=== PATIENT | male | born 1965 | race Caucasian/White ===

== ENCOUNTER → 2017-11-28 | Outpatient (CLI) | payer OTHER ==
[~2017-11-28] MED LIST: ASCO100T4 PO; ASPCH81 PO; FLUD0.1T10 PO; LEVO100T7 PO; LPR25 PO; MAGN1TAB19 PO; MULT-506 PO; MYCO500T4 PO; MYCO500T5 PO; PRLSR20 PO; TACR5CAP PO
== END | disposition home or self-care (01) ==
LOC: C.PATHSPEC 17:24
PROVIDERS: ATTEND Plastic Surgery
DX: L57.0 Actinic keratosis (principal)

== ENCOUNTER 2024-10-06 10:37 | Inpatient (IN) ==
[2024-10-06] MEDS: ACETAMINOPHEN 500 MG TAB PO STA (11:12)
[2024-10-06 11:48] LABS: Albumin Level 3.5 gm/dl (3.4-5.0); BUN Creatinine Ratio 18.3 (10-20); Bilirubin,Total 0.4 mg/dl (0.2-1.0); Calcium 8.2 mg/dl (8.6-10.3); Creatinine Clr Calc Pharmacy 15.6 ml/min; Globulin 3.6 gm/dl (2.5-4.0); Potassium 4.6 mmol/L (3.5-5.1); Total Protein 7.1 gm/dl (6.0-8.3)
[2024-10-06 11:55] LABS: Basophils # (auto) 0.01 K/uL (0.00-0.20); Basophils % (auto) 0.2 %; Hematocrit (blood only) 28.8 % (42.0-52.0); Hemoglobin 9.3 g/dl (14.0-18.0); Immature Granulocytes # (auto) 0.02 K/uL (0.01-0.20); Immature Granulocytes % (auto) 0.5 %; Lymphocytes # (auto) 0.37 K/uL (1.20-3.40); Mean Corpuscular Hgb Conc 32.3 g/dL (32.0-36.0); Mean Corpuscular Volume 86.7 fL (80.0-100.0); Mean Platelet Volume 12.3 fL (9.4-12.4); Monocytes # (auto) 0.33 K/uL (0.11-0.59); Neutrophils # (auto) 3.39 K/uL (1.40-6.50); Neutrophils % (auto) 82.3 %; Platelet Count 75 K/uL (130-400); Platelet Estimate Decreased (Normal); RDW Coefficient of Variation 13.6 % (11.5-14.5); Red Blood Count 3.32 M/uL (4.70-6.10); White Blood Count 4.12 K/ul (4.8-10.8)
--- NOTE | 2024-10-06 12:08 | Emergency Department Note ---
Impression & Plan Acute kidney injury, Status post liver transplant, Acute dehydration, Pancytopenia, COVID-19 ED Provider Note NAME: MOISES DUNNE AGE: 59 SEX: M : 1965 ARRIVES VIA: Walk-In INFORMANT: Patient, ED PROVIDER(S): Blaise Means MD CHIEF COMPLAINT: Nausea vomiting diarrhea MEDICAL DECISION MAKING: Patient presents with nausea vomiting diarrhea as well as temperature here in the department. Patient already did receive Tylenol in triage. IV was established and blood work was obtained along with blood and urine cultures procalcitonin and bio fire. The patient was treated with broad-spectrum antibiotics empirically the patient's immunosuppressive therapy and history of liver transplant. Patient was noted to be hypotensive and did inform the nurse to ensure to pressure bag in the first liter and if he did not have responsive to fluid administration to consider a second line to ensure more prompt administration of his IV fluids. Patient has a white count of 4.1 with a hemoglobin of 9.3. Platelet count is 75. Patient's initial blood work did show hyponatremia with sodium 123 creatinine of 5.1. The patient states that he did urinate some this morning. Patient is COVID-19 positive. Patient was ordered broad-spectrum antibiotics in light of the patient's borderline fever and immunosuppressive therapy. The patient was treated vancomycin and Zosyn. Patient's lactate of 0.8 Pro-Godfrey of 5.96. Patient was fluid responsive after his IV fluids. And received he received his 30 cc/kg bolus. Discussion w/ other healthcare providers: None Prior /Outside records reviewed: None Differential diagnosis: Viral syndrome, otitis, pharyngitis, pneumonia, influenza, meningitis, urinary tract infection, sepsis, bacteremia, as well as other pathologies. Diagnostics, as interpreted by me: ECG: None Cardiac monitoring: An order was placed for continuous cardiac monitoring. The monitor shows a rate of 105 with tachycardic and regular rhythm. Patient was placed on pulse oximetry Medical decision rules: None Imaging studies: I informally interpreted the patient's chest x-ray does not show obvious pneumonia or pneumothorax elevation of the right hemidiaphragm noted.with formal report to follow. HPI: Patient presents due to concern for nausea vomiting and diarrhea. The patient states that his symptoms began several days ago. No known sick contacts or any recent travel build believes that he developed the flu. Patient believes that he is dehydrated and did feel feverish this morning. Patient did take some Tylenol yesterday and did receive some in triage. Patient denies any cough or congestion no sore throat or ear pain. Patient states that he does follow with a Dr. Hill transplant specialist at [facility]. Patient states likely does follow with Pam Andrews with [facility]. Patient denies any abdominal pain. The patient is on CellCept and Prograf. 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 Patient denies any urinary symptoms or abdominal pain. Patient states that he is had no vomiting or diarrhea today. PAST MEDICAL HISTORY: See Below PAST SURGICAL HISTORY: See Below SOCIAL HISTORY: See Below HOME MEDICATIONS: See Below ALLERGIES: See Below VITALS: See Below PHYSICAL EXAMINATION: GENERAL: NAD, non-toxic. Wearing glasses and a mask. EYE EXAM: Normal conjunctiva. PERRL, no anisocoria and EOM's grossly intact w/o pain. OROPHARYNX: Moist mucus membranes, grossly normal dentition. NECK: Trachea midline, no stridor. Supple, no nuchal rigidity, no adenopathy, non-tender. No signs of meningismus. FROM of the neck with good chin to chest and neck extension. LUNGS: Clear to auscultation. Normal chest wall mechanics. HEART: Tachycardic and regular, no MRG. ABDOMEN: Abdomen soft, well-healed incisional scars noted over the abdomen, no masses, no rebound or guarding. BACK: No CVA TTP. SKIN: No rashes and no bruising. UPPER EXTREMITIES: Upper extremities are grossly normal. LOWER EXTREMITIES: Grossly normal, no edema. NEURO EXAM: A&O x3, cranial nerves II-XII grossly intact, normal speech, moves all 4 extremities. Past Med/Surg History Problem List (Updated 10/06/24 @ 19:20 by Blaise Means MD) COVID-19 (Acute) Pancytopenia (Acute) Acute dehydration (Acute) SARS-CoV-2 positive Acute hyponatremia Acute worsening of stage 3 chronic kidney disease Erectile dysfunction Prostate cancer screening Encounter for pre-operative examination Esophageal varices Ureteral calculus Hydronephrosis Hyperkalemia (02/05/14) Acute kidney injury (Acute 02/05/14) Status post cholecystectomy Ureteral calculus History of hepatic failure secondary to sclerosing cholangitis Kidney stone Status post colectomy "for ulcerative colitis" Status post liver transplant (Acute) "first transplant 1997 for sclerosing cholangitis second transplant Jul 2013 for recurrent hepatic failure third transplant Aug 2013 (donor for 2nd transplant had metastatic cancer)" History of ulcerative colitis Hypothyroidism Medical History (Updated 10/06/24 @ 19:20 by Blaise Means MD) Obesity CKD (chronic kidney disease) stage III Liver transplant recipient 1997, 2012 Pancreatitis hx ~15 years ago/no issues since liver transplant Esophageal varices hx/resolved since liver transplant GERD (gastroesophageal reflux disease) Hypertension Surgical History (Updated 10/06/24 @ 19:20 by Blaise Means MD) History of colon surgery J-Pouch surgery History of lithotripsy History of cholecystectomy with liver surgery History of colonoscopy History of esophagogastroduodenoscopy (EGD) History of colostomy reversal History of colostomy Family History Father Heart disease Cancer Other No family history of adverse response to anesthesia Social History Smoking Status: Never smoker Second Hand Exposure: No; Do You Dip or Chew Tobacco: No; Hx Alcohol Use: Yes Hx Substance Use: No Preferred Language: Uzbek Communication Ability: Effective Visual Impairment: No Limitations Hearing Ability: Normal Toolsmith Required: No Beliefs That Will Affect Care: None marital status: Current Living Situation: Spouse current occupational status: employed 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 Feels Safe at Home: Yes Diet: regular Assistive Devices: Glasses Allergies Allergies Allergy/AdvReac Type Severity Reaction Status Date / Time denosumab [From Prolia] Allergy Severe liver Verified 09/25/23 08:16 failure Sulfa (Sulfonamide Allergy Intermediate Rash Verified 09/25/23 08:16 Antibiotics) Home Meds Home Medications Medication Instructions Recorded Confirmed aspirin 81 mg tablet,delayed 81 mg PO DAILY 06/03/20 10/06/24 release ferrous sulfate 325 mg (65 mg 325 mg PO DAILY 06/03/20 10/06/24 iron) tablet,delayed release metoprolol tartrate 25 mg tablet 25 mg PO BID 06/03/20 10/06/24 mycophenolate mofetil 500 mg tablet 1,000 mg PO QAM 06/03/20 10/06/24 mycophenolate mofetil 500 mg 500 mg PO HS 06/03/20 10/06/24 tablet (CellCept) omeprazole 20 mg capsule,delayed 20 mg PO DAILY 06/03/20 10/06/24 release tacrolimus 1 mg capsule, 1 mg PO Q12H 06/03/20 10/06/24 immediate-release levothyroxine 150 mcg tablet 175 mcg PO QAM 07/23/22 10/06/24 lisinopril 5 mg tablet 5 mg PO DAILY 09/25/23 10/06/24 Results & Data (ED) Vital Signs Vital Signs - 24 hr 10/06/24 10:48 10/06/24 12:17 10/06/24 12:25 Temperature 37.7 C H 37.2 C Temperature Source Temporal Artery Scan Oral Pulse Rate 115 H 109 H Pulse Rate [Apical] Pulse Rhythm Regular Pulse Rhythm [Apical] Pulse Strength Normal Pulse Strength [Apical] Respiratory Rate 22 Respiratory Effort / Characteristics Non-Labored Spontaneous Respiratory Depth Normal Respiratory Pattern Regular Blood Pressure 126/69 Blood Pressure [Left Arm] Blood Pressure Mean 88 Blood Pressure Mean [Left Arm] Blood Pressure Position Sitting Blood Pressure Position [Left Arm] Pulse Oximetry 98 Oxygen Delivery Method Room Air Sepsis Recent Fever Within 48 Hours Yes Sepsis New/Unexplained Change in Mental Status No Sepsis Action Taken by Nursing No Action Required 10/06/24 13:38 Temperature Temperature Source Pulse Rate Pulse Rate [Apical] 103 H Pulse Rhythm Pulse Rhythm [Apical] Regular Pulse Strength Pulse Strength [Apical] Normal Respiratory Rate 24 Respiratory Effort / Characteristics Non-Labored Spontaneous Respiratory Depth Normal Respiratory Pattern Regular Blood Pressure Blood Pressure [Left Arm] 111/67 Blood Pressure Mean Blood Pressure Mean [Left Arm] 81 Blood Pressure Position Blood Pressure Position [Left Arm] Semi-fowlers Pulse Oximetry 100 Oxygen Delivery Method Room Air Sepsis Recent Fever Within 48 Hours Sepsis New/Unexplained Change in Mental Status Sepsis Action Taken by [facility] Medications Current Medication List: was personally reviewed by me Laboratory Data Attestation: I reviewed the patient's lab results. 10/06/24 11:08 10/06/24 14:53 Lab Results 10/06/24 10/06/24 Range/Units 11:08 12:35 WBC 4.12 L (4.8-10.8) K/ul RBC 3.32 L (4.70-6.10) M/uL Hgb 9.3 L (14.0-18.0) g/dl Hct 28.8 L (42.0-52.0) % MCV 86.7 (80.0-100.0) fL MCH 28.0 (25.0-34.0) pg MCHC 32.3 (32.0-36.0) g/dL RDW Std Deviation 43.0 (36.4-46.3) fL RDW Coeff of Meka 13.6 (11.5-14.5) % Plt Count 75 L (130-400) K/uL MPV 12.3 (9.4-12.4) fL Immature Gran % (Auto) 0.5 % Neut % (Auto) 82.3 % Lymph % (Auto) 9.0 % Sabine % (Auto) 8.0 % Eos % (Auto) 0.0 % Baso % (Auto) 0.2 % Neut # (Auto) 3.39 (1.40-6.50) K/uL Lymph # (Auto) 0.37 L (1.20-3.40) K/uL Sabine # (Auto) 0.33 (0.11-0.59) K/uL Eos # (Auto) 0.00 (0.00-0.50) K/uL Baso # (Auto) 0.01 (0.00-0.20) K/uL Immature Gran # (Auto) 0.02 (0.01-0.20) K/uL Platelet Estimate Decreased L (Normal) Sodium 123 L (136-145) mmol/L Potassium 4.6 (3.5-5.1) mmol/L Chloride 100 (98-107) mmol/L Carbon Dioxide 12 L (21-32) mmol/L Anion Gap 11 (3-11) BUN 94 H (6-23) mg/dl Creatinine 5.14 H* (0.6-1.4) mg/dl Est Cr Clr Drug Dosing 15.6 ml/min eGFR 12.01 BUN/Creatinine Ratio 18.3 (10-20) Glucose 145 H (70-99(Fasting)) mg/dl Lactate 0.8 (0.4-2.0) mmol/L Calcium 8.2 L (8.6-10.3) mg/dl Total Bilirubin 0.4 (0.2-1.0) mg/dl AST 34 (13-39) U/L ALT 31 (7-52) U/L Alkaline Phosphatase 240 H (34-104) U/L Total Protein 7.1 (6.0-8.3) gm/dl Albumin 3.5 (3.4-5.0) gm/dl Globulin 3.6 (2.5-4.0) gm/dl Albumin/Globulin Ratio 1.0 (0.9-2) Lipase 77 (11-82) U/L Procalcitonin 5.96 H (0-0.5) ng/ml Adenovirus (PCR) Not Detected (NotDetected) B. pertussis DNA (PCR) Not Detected (NotDetected) B.parapertussis DNA PCR Not Detected (NotDetected) Lyme Disease Screen Negative (Negative) C. pneumoniae DNA (PCR) Not Detected (NotDetected) Coronavirus OC43 (PCR) Not Detected (NotDetected) Coronavirus HKU1 (PCR) Not Detected (NotDetected) Coronavirus 229E (PCR) Not Detected (NotDetected) SARS-CoV-2 (PCR) DETECTED A (NotDetected) Coronavirus NL63 (PCR) Not Detected (NotDetected) Human Metapneumovir PCR Not Detected (NotDetected) Influenza Type A (PCR) Not Detected (NotDetected) Influenza Type B (PCR) Not Detected (NotDetected) M. pneumoniae (PCR) Not Detected (NotDetected) Parainfluenza 1 (PCR) Not Detected (NotDetected) Parainfluenza 2 (PCR) Not Detected (NotDetected) Parainfluenza 3 (PCR) Not Detected (NotDetected) Parainfluenza 4 (PCR) Not Detected (NotDetected) RSV (PCR) Not Detected (NotDetected) Entero/Rhino (PCR) Not Detected (NotDetected) Administered Medications Acetaminophen (Acetaminophen 325 Mg Tab) 650 mg PO Q4H PRN PRN Reason: Pain or Fever Stop: 11/05/24 16:19 Last Admin: 10/06/24 17:26 Dose: 650 mg Documented By: LIZBETH Doxycycline Hyclate 100 mg/ (Dextrose) 100 mls @ 50 mls/hr IV Q12H JOBY Stop: 10/20/24 16:59 Last Admin: 10/06/24 17:20 Dose: 50 mls/hr Documented By: LIZBETH Sodium Chloride (Nss) 1,000 mls @ 110 mls/hr IV .Q9H6M [facility] Stop: 10/07/24 16:19 Last Admin: 10/06/24 17:20 Dose: 110 mls/hr Documented By: LIZBETH Discontinued Medications Acetaminophen (Acetaminophen 500 Mg Tab) 1,000 mg PO NOW STA Stop: 10/06/24 11:10 Last Admin: 10/06/24 11:12 Dose: 1,000 mg Documented By: JUANA Sodium Chloride (Nss) 1,000 mls @ 999 mls/hr IV .Q1H1M JOBY Stop: 10/06/24 14:30 Last Infusion: 10/06/24 15:09 Dose: Infused Documented By: Admin: 10/06/24 13:10 Dose: 999 mls/hr Documented By: Infusion: 10/06/24 13:10 Dose: Infused Documented By: Admin: 10/06/24 12:40 Dose: 999 mls/hr Documented By: Sodium Chloride (Nss) 500 mls @ 999 mls/hr IV .Q31M ONE Stop: 10/06/24 12:55 Last Infusion: 10/06/24 13:44 Dose: Infused Documented By: Admin: 10/06/24 12:40 Dose: 999 mls/hr Documented By: Vancomycin HCl 2,250 mg/ (Dextrose) 545 mls @ 200 mls/hr IV NOW ONE Stop: 10/06/24 15:38 Last Infusion: 10/06/24 16:40 Dose: Infused Documented By: Admin: 10/06/24 13:56 Dose: 200 mls/hr Documented By: Piperacillin Sod/Tazobactam Sod (Zosyn) 4.5 gm in 100 mls @ 200 mls/hr IV NOW ONE; Protocol Stop: 10/06/24 13:24 Last Infusion: 10/06/24 13:57 Dose: Infused Documented By: Admin: 10/06/24 13:10 Dose: 200 mls/hr Documented By: FAIZAN Ondansetron HCl (Ondansetron Inj 2 Mg/Ml 2 Ml Vial) 4 mg IV NOW STA Stop: 10/06/24 12:26 Last Admin: 10/06/24 12:47 Dose: 4 mg Documented By: MSG Imaging Data Radiologist's Impression: Chest X-Ray 10/06/24 12:57 XR chest 1V portable HISTORY: 59 years-old Male admit acute shortness of breath COMPARISON: 06/07/2020 TECHNIQUE: AP view of the chest FINDINGS: Cardiac silhouette is enlarged. The lungs appear clear. Mild chronic interstitial coarsening. No pneumothorax or pleural effusion. There is unchanged right hemidiaphragmatic elevation. The bones appear grossly intact. IMPRESSION: No acute process. ACT 112: Negative or not required by law. The above report was generated using voice recognition software. It may contain grammatical, syntax or spelling errors. Electronically signed by: Jared Mcdaniel M.D. 10/06/2024 1:31 PM Discharge Plan Visit Data Chief Complaint: Dehydration Stated Complaint: DEHYDRATION, LIGHTHEADED/HEADACHE, FATIGUE ED Provider: Blaise Means Discharge Problem: Acute kidney injury, Status post liver transplant, Acute dehydration, Pancytopenia, COVID-19 Patient Disposition: Admitted As Inpatient Discharge Instructions Interventions: ED Discharge Assessment Last Done: 10/06/24 16:20 Discharge Problem:
[2024-10-06 12:21] LABS: Adenovirus PCR Not Detected (NotDetected); Bordetella parapertussis PCR Not Detected (NotDetected); Bordetella pertussis PCR Not Detected (NotDetected); Chlamydia pneumoniae PCR Not Detected (NotDetected); Coronavirus 229E PCR Not Detected (NotDetected); Coronavirus CoV-2 (COVID19)PCR DETECTED (NotDetected); Coronavirus HKU1 PCR Not Detected (NotDetected); Coronavirus NL63 PCR Not Detected (NotDetected); Coronavirus OC43PCR Not Detected (NotDetected); Human Metapneumovirus PCR Not Detected (NotDetected); Influenza A PCR Not Detected (NotDetected); Influenza B PCR Not Detected (NotDetected); Mycoplasma pneumoniae PCR Not Detected (NotDetected); Parainfluenza Virus 1 PCR Not Detected (NotDetected); Parainfluenza Virus 2 PCR Not Detected (NotDetected); Parainfluenza Virus 3 PCR Not Detected (NotDetected); Parainfluenza Virus 4 PCR Not Detected (NotDetected); Respiratory Syncytial VirusPCR Not Detected (NotDetected); Rhinovirus/Enterovirus PCR Not Detected (NotDetected)
[2024-10-06] MEDS: SODIUM CHLORIDE 0.9% 1,000 ML IV SCH ×2 (12:40→17:20)
[2024-10-06] MEDS: SODIUM CHLORIDE 0.9% 500 ML IV ONE (12:40)
[2024-10-06] MEDS: ONDANSETRON INJ 2 MG/ML 2 ML VIAL IV STA (12:47)
[2024-10-06] MEDS ORDERED: VANCOMYCIN CONSULT ACTIVE PRN (12:55)
[2024-10-06] MEDS: PIPERACILLIN/TAZOBACTAM 4.5 GM/100 ML BAG IV ONE (13:10)
--- NOTE | 2024-10-06 13:32 | XRay Report ---
XR chest 1V portable HISTORY: 59 years-old Male admit acute shortness of breath COMPARISON: 06/07/2020 TECHNIQUE: AP view of the chest FINDINGS: Cardiac silhouette is enlarged. The lungs appear clear. Mild chronic interstitial coarsening. No pneu mothorax or pleural effusion. There is unchanged right hemidiaphragmatic elevation. The bones appear grossly intact. IMPRESSION: No acute process. ACT 112: Negative or not required by law. The above report was generated using voice recognition software. It may contain grammatical, syntax o r spelling errors. Electronically signed by: Jared Mcdaniel M.D. 10/06/2024 1:31 PM
[2024-10-06] MEDS: VANCOMYCIN HCL 2,250 MG in DEXTROSE 5% 500 ML IV ONE (13:56)
--- NOTE | 2024-10-06 14:05 | History & Physical Report ---
Date of Service October 06, 2024 Assessment & Plan (1) Acute worsening of stage 3 chronic kidney disease: (2) Acute hyponatremia: (3) SARS-CoV-2 positive: (4) Status post liver transplant: Plan This is a 59-year-old male who has significant past medical history of primary s clerosing cholangitis status post liver transplant in 1997, retransplant in 2013 secondary to chronic failure as well as Prolia injection and repeat transplant 2 weeks after that secondary to organ donor found to have squamous cell carcinoma of lung, chronic ulcerative colitis, HTN, Sharif's, CKD stage III, anemia of chronic disease and hypothyroidism who presents to ED secondary to flulike sympt oms x 4 days. Acute on Chronic CKD -3 Acute Hyponatremia - suspect hypovolemic hypotonic admit to PCU received 2L of IVF in ED continue maintenance fluids at 110cc/hr x24 hr - reassess need to re order in a.m. bmp q4 hours consult nephrology Dr. Leigh baseline cr 2.2-2.4 - follows Dr. Alejo [facility] - recently seen in August had imaging done which revealed a large 1cm Obs kidney stone on L, had consultation with surgical service and felt L kidney functioning poorly; therefore did not feel removing stone would provide benefit Consider renal US or CT scan if minimal improvement of renal function despite fluids hold and avoid nephrotoxic agents Acute thrombocytopenia suspect in setting of acute illness baseline plts in 200s obtain tick borne serologies as well monitor Sars COV 2 pt asymptomatic from respiratory standpoint does not meet criteria for guided therapies monitor, supportive care clear liquid diet, advance as tolerated received IV Vanco/zosyn in ED - do not see need to continue IV antibiotics at this time Hx of PSC s/p liver transplant in 1997 required repeat transplantation in 2012 2/2 chronic failure and prolia inj required repeat transplantation 2 weeks later in 2013 due to organ donor found to have lung SCC has been stable since Follows [facility] [place] Transplant Dr Singh on tacrolimus and prograf, tacro level pending spoke to food safety coordinator Carol at [place] [phone], recommendation to hold tacro level given ARELIS and check daily Tacro levels, goal is 3-6, ok to continue prograf HTN: chronic, stable - bp on lower side, hold lisinopril, continue metoprolol for now with hold parameters Anemia of renal disease: baseline hgb 9-10, continue iron supplement, follows Nephro in [place] Secondary hypoparathyroidism: previously on Ca + Vit D, currently off Chronic Conditions: Hypothyroidism, barretts, Chronic U.C -> continue home meds DVT ppx: SCDS for now given new thrombocytopenia, if stable in a.m. recommend chemical ppx until more ambulatory FULL CODE PCP: MD Darryl Dispo: admit to PCU, likely discharge to home when medically able Pt was seen and examined in collaboration with Dr. Spencer, please see addendum I spent a total of 90 minutes reviewing notes, outpatient records, labs, medication, coordinating, documenting and providing care for this patient excluding time spent in the performance of separately billed services. History of Present Illness Chief Complaint: Flu like sx x 4 days. Primary Care Provider: Vicky Andrews MD This is a 59-year-old male who has significant past medical history of primary sclerosing cholangitis status post liver transplant in 1997, retransplant in 2012 secondary to chronic failure as well as Prolia injection and repeat transplant 2 weeks after that secondary to organ donor found to have squamous cell carcinoma of lung, chronic ulcerative colitis, HTN, Sharif's, CKD stage III, anemia of chronic disease and hypothyroidism who presents to ED secondary to flulike symptoms x 4 days. is at bedside who also helps elicit history. Patient's outpatient medical records were reviewed. He states his symptoms started on Saturday when he began to feel generally unwell., "I felt like I had the flu." He tried to go to the [employer] on Saturday and was tailgating for 2 hours when he returned home and wrapped himself up in blankets. He felt very feverish and chilled. He did not take his temperature but he is positive he had a fever. He further complained of headache, poor appetite, lack of energy and nausea. He did have 2 episodes of vomiting last evening after he attempted to eat birthday cake for his son-in-law. He has chronic loose stool at baseline and denies any worsening of this. He is producing urine. He denies any respiratory symptoms including sinus congestion, cough, postnasal drip, chest pain, shortness of breath. He further denies any urinary symptoms including dysuria, increased urgency or frequency with urination. He did not take any of his medications this morning. He last took his medications last evening. Patient is established with [facility] nephrology in regards to his CKD stage III. He reports that he had a visit less than 1 month ago. He had imaging of his abdomen which revealed a large 1 cm kidney stone obstructing his left kidney. He reports at this point in time they wish to not proceed surgically with this due to a poorly functioning left kidney at baseline. He also reports that he follows with Dr. Arizmendi of [facility] urology. In ED patient remained hemodynamically stable. He did have an episode of hypotension which resolved with an IV fluid bolus. His lab work revealed a chronic anemia with a stable hemoglobin of 9.3. He does have a thrombocytopenia with a platelet level of 75. He has an acute hyponatremia with a sodium of 123 and ARELIS with a BUN of 94 and creatinine of 5.14. His respiratory bio fire tested positive for SARS-CoV-2. In ED he received 2 L of IV fluid as well as IV vancomycin and Zosyn due to patient's immunosuppressed status. Allergies Allergy/AdvReac Type Severity Reaction Status Date / Time denosumab [From Prolia] Allergy Severe liver Verified 09/25/23 08:16 failure Sulfa (Sulfonamide Allergy Intermediate Rash Verified 09/25/23 08:16 Antibiotics) Home Medications Medication Instructions Recorded Confirmed Type aspirin 81 mg tablet,delayed 81 mg PO DAILY 06/03/20 10/06/24 History release ferrous sulfate 325 mg (65 mg 325 mg PO DAILY 06/03/20 10/06/24 History iron) tablet,delayed release metoprolol tartrate 25 mg tablet 25 mg PO BID 06/03/20 10/06/24 History mycophenolate mofetil 500 mg tablet 1,000 mg PO QAM 06/03/20 10/06/24 History mycophenolate mofetil 500 mg 500 mg PO HS 06/03/20 10/06/24 History tablet (CellCept) omeprazole 20 mg capsule,delayed 20 mg PO DAILY 06/03/20 10/06/24 History release tacrolimus 1 mg capsule, 1 mg PO Q12H 06/03/20 10/06/24 History immediate-release levothyroxine 150 mcg tablet 175 mcg PO QAM 07/23/22 10/06/24 History lisinopril 5 mg tablet 5 mg PO DAILY 09/25/23 10/06/24 History Past Med/Surg History Problem List (Updated 10/06/24 @ 14:21 by Edie Estevez PA-C) SARS-CoV-2 positive Acute hyponatremia Acute worsening of stage 3 chronic kidney disease Erectile dysfunction Prostate cancer screening Encounter for pre-operative examination Esophageal varices Ureteral calculus Hydronephrosis Hyperkalemia (02/05/14) Acute kidney injury (02/05/14) Status post cholecystectomy Ureteral calculus History of hepatic failure secondary to sclerosing cholangitis Kidney stone Status post colectomy "for ulcerative colitis" Status post liver transplant "first transplant 1997 for sclerosing cholangitis second transplant Jul 2013 for recurrent hepatic failure third transplant Aug 2013 (donor for 2nd transplant had metastatic cancer)" History of ulcerative colitis Hypothyroidism Medical History (Updated 10/06/24 @ 14:21 by Edie Estevez PA-C) Obesity CKD (chronic kidney disease) stage III Liver transplant recipient 1997, 2012 Pancreatitis hx ~15 years ago/no issues since liver transplant Esophageal varices hx/resolved since liver transplant GERD (gastroesophageal reflux disease) Hypertension Surgical History History of colon surgery J-Pouch surgery History of lithotripsy History of cholecystectomy with liver surgery History of colonoscopy History of esophagogastroduodenoscopy (EGD) History of colostomy reversal History of colostomy Family History Father Heart disease Cancer Other No family history of adverse response to anesthesia Social History Smoking Status: Never smoker Second Hand Exposure: No; Do You Dip or Chew Tobacco: No; Hx Alcohol Use: Yes Hx Substance Use: No Preferred Language: Faroese Communication Ability: Effective Visual Impairment: No Limitations Hearing Ability: Normal Construction Engineer Required: No Beliefs That Will Affect Care: None marital status: Current Living Situation: Spouse current occupational status: employed 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 Feels Safe at Home: Yes Diet: regular Assistive Devices: Glasses Review of Systems Review of Systems: All systems reviewed & are unremarkable except as noted in HPI & below Physical Exam Physical Exam: Constitutional: WD/WN, acutely ill, vitals as above, NAD, sitting up in bed, pleasant, conversing easily Head: Normocephalic, Atraumatic Eyes: PERRL, conjunctivae normal, anicteric sclerae ENMT: external ear and nose normal, oropharynx normal Neck: trachea midline, no thyromegaly normal visual inspection Respiratory: normal respiratory effort, lungs clear to auscultation, no wheeze, rales, rhonchi. Normal insp/exp effort, no accessory muscle use Cardiovascular: RRR, no murmur, no edema Vessels: no JVD or carotid bruit Chest: normal inspection of chest Abdomen: normal bowel sounds, soft, + evidence of multiple surgeries, nontender, no hepatosplenomegaly Musculoskeletal: no cyanosis or clubbing, extremities motor strength 5/5 Skin: no rashes, warm and dry normal turgor Neurologic: PERRL, EOMI, accommodation nl, no face palsy, no dysarthria CN's II-XI intact bilaterally and moves all extremities Psychiatric: A+Ox3, euthymic affect Lymphatic: no cervical or axillary lymphadenopathy : deferred Results & Data Results & Data Vital Signs (Past 12 Hours) Vital Signs Temp Pulse Pulse Resp BP BP Pulse Ox 10/06/24 13:38 103 H 24 111/67 100 10/06/24 12:25 109 H 10/06/24 12:17 37.2 C 10/06/24 10:48 37.7 C H 115 H 22 126/69 98 O2 Del Method 10/06/24 13:38 Room Air 10/06/24 12:25 10/06/24 12:17 10/06/24 10:48 Room Air Laboratory Results I have independently reviewed and interpreted patient's admitting labs including CBC, CMP, lipase, procal, biofire, lactic acid Diagnostic Findings Chest X-Ray 10/06/24 12:57 XR chest 1V portable HISTORY: 59 years-old Male admit acute shortness of breath COMPARISON: 06/07/2020 TECHNIQUE: AP view of the chest FINDINGS: Cardiac silhouette is enlarged. The lungs appear clear. Mild chronic interstitial coarsening. No pneumothorax or pleural effusion. There is unchanged right hemidiaphragmatic elevation. The bones appear grossly intact. IMPRESSION: No acute process. ACT 112: Negative or not required by law. The above report was generated using voice recognition software. It may contain grammatical, syntax or spelling errors. Electronically signed by: Jared Mcdaniel M.D. 10/06/2024 1:31 PM Medications Administered Medication List Sodium Chloride (Nss) 1,000 mls @ 999 mls/hr IV .Q1H1M JOBY Stop: 10/06/24 14:30 Last Admin: 10/06/24 13:10 Dose: 999 mls/hr Documented By: Infusion: 10/06/24 13:10 Dose: Infused Documented By: Admin: 10/06/24 12:40 Dose: 999 mls/hr Documented By: Vancomycin HCl 2,250 mg/ (Dextrose) 545 mls @ 200 mls/hr IV NOW ONE Stop: 10/06/24 15:38 Last Admin: 10/06/24 13:56 Dose: 200 mls/hr Documented By: Discontinued Medications Acetaminophen (Acetaminophen 500 Mg Tab) 1,000 mg PO NOW STA Stop: 10/06/24 11:10 Last Admin: 10/06/24 11:12 Dose: 1,000 mg Documented By: JUANA Sodium Chloride (Nss) 500 mls @ 999 mls/hr IV .Q31M ONE Stop: 10/06/24 12:55 Last Infusion: 10/06/24 13:44 Dose: Infused Documented By: Admin: 10/06/24 12:40 Dose: 999 mls/hr Documented By: Piperacillin Sod/Tazobactam Sod (Zosyn) 4.5 gm in 100 mls @ 200 mls/hr IV NOW ONE; Protocol Stop: 10/06/24 13:24 Last Infusion: 10/06/24 13:57 Dose: Infused Documented By: Admin: 10/06/24 13:10 Dose: 200 mls/hr Documented By: FAIZAN Ondansetron HCl (Ondansetron Inj 2 Mg/Ml 2 Ml Vial) 4 mg IV NOW STA Stop: 10/06/24 12:26 Last Admin: 10/06/24 12:47 Dose: 4 mg Documented By: ECG Additional Comments: I have independently reviewed and interpreted patient's admitting EKG which revealed: 111 sinus tachycardia COVID-19 Results Results COVID-19 Adm Lab Results: RBC 3.32 M/uL (4.70-6.10) L 10/06/24 WBC 4.12 K/ul (4.8-10.8) L 10/06/24 Hgb 9.3 g/dl (14.0-18.0) L 10/06/24 Hct 28.8 % (42.0-52.0) L 10/06/24 Plt Count 75 K/uL (130-400) L 10/06/24 Neutrophils (%) (Auto) 82.3 % 10/06/24 Lymphocytes (%) (Auto) 9.0 % 10/06/24 Monocytes # (Auto) 0.33 K/uL (0.11-0.59) 10/06/24 Eosinophils # (Auto) 0.00 K/uL (0.00-0.50) 10/06/24 Immature Granulocyte % (Auto) 0.5 % 10/06/24 Neutrophils # (Auto) 3.39 K/uL (1.40-6.50) 10/06/24 Lymphocytes # (Auto) 0.37 K/uL (1.20-3.40) L 10/06/24 Monocytes # (Auto) 0.33 K/uL (0.11-0.59) 10/06/24 Eosinophils # (Auto) 0.00 K/uL (0.00-0.50) 10/06/24 Basophils # (Auto) 0.01 K/uL (0.00-0.20) 10/06/24 Immature Granulocyte # (Auto) 0.02 K/uL (0.01-0.20) 4 Na 123 mmol/L (136-145) L 10/06/24 K 4.6 mmol/L (3.5-5.1) 10/06/24 Cl 100 mmol/L (98-107) 10/06/24 CO2 12 mmol/L (21-32) L 10/06/24 Anion Gap 11 (3-11) 10/06/24 BUN 94 mg/dl (6-23) H 10/06/24 Creatinine 5.14 mg/dl (0.6-1.4) H* 10/06/24 BUN/Creatinine Ratio 18.3 (10-20) 10/06/24 Glucose Level 145 mg/dl (70-99(Fasting)) H 10/06/24 Ca 8.2 mg/dl (8.6-10.3) L 10/06/24 Total Bilirubin 0.4 mg/dl (0.2-1.0) 10/06/24 AST/SGOT 34 U/L (13-39) 10/06/24 ALT/SGPT 31 U/L (7-52) 10/06/24 Alkaline Phosphatase 240 U/L (34-104) H 10/06/24 Total Protein 7.1 gm/dl (6.0-8.3) 10/06/24 Albumin 3.5 gm/dl (3.4-5.0) 10/06/24 Globulin 3.6 gm/dl (2.5-4.0) 10/06/24 Albumin/Globulin Ratio 1.0 (0.9-2) 10/06/24 Procalcitonin 5.96 ng/ml (0-0.5) H 10/06/24 Adenovirus (PCR) Not Detected (NotDetected) 10/06/24 B. parapertussis DNA (PCR) Not Detected (NotDetected) 09/25 01/18 B. pertussis DNA (PCR) Not Detected (NotDetected) 10/06/24 C. pneumoniae DNA (PCR) Not Detected (NotDetected) 4 Coronavirus Type OC43 (PCR) Not Detected (NotDetected) 11/17 Coronavirus Type HKU1 (PCR) Not Detected (NotDetected) 11/17 Coronavirus Type 229E (PCR) Not Detected (NotDetected) 11/17 COVID-19 PCR DETECTED (NotDetected) A 10/06/24 Coronavirus Type NL63 (PCR) Not Detected (NotDetected) 11/17 Human Metapneumovirus (PCR) Not Detected (NotDetected) 11/17 Influenza Virus Type A (PCR) Not Detected (NotDetected) Influenza Virus Type B (PCR) Not Detected (NotDetected) M. pneumoniae (PCR) Not Detected (NotDetected) 10/06/24 Parainfluenza Type 1 (PCR) Not Detected (NotDetected) 09/25 01/18 Parainfluenza Type 2 (PCR) Not Detected (NotDetected) 09/25 01/18 Parainfluenza Type 3 (PCR) Not Detected (NotDetected) 09/25 01/18 Parainfluenza Type 4 (PCR) Not Detected (NotDetected) 09/25 01/18 RSV (PCR) Not Detected (NotDetected) 10/06/24 Enterovirus/Rhinovirus (PCR) Not Detected (NotDetected) Chest X-Ray 10/06/24 Code Status & VTE Plan Code Status FULL CODE VTE Prophylaxis Plan VTE Prophylaxis will be ordered: Yes Supervising Physician Co-Signing Physician Notes 59-year-old male with PMH of primary sclerosing cholangitis status post liver transplant x 2 [1997 and 2012] , chronic ulcerative colitis, CKD stage III, anemia of chronic disease and hypothyroidism presented to the ED with 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 Patient reports feeling feverish with chills and sweats, very poor appetite, no energy, tiredness and easy fatigability, vomiting x 2 after trying to eat slice of birthday cake yesterday. He denies cough or shortness of breath. Denies other family members with similar symptoms at home. Labs and imagings reviewed. Pancytopenia noted, likely in the setting of immunosuppressive use and can be exacerbated by recent COVID infection. Sodium 123, creatinine of 5.14, procalcitonin elevated at 5.96, UA negative for UTI, respiratory pathogen panel positive for COVID. CXR with no acute process. EKG with sinus tach. Follow admitting blood culture. COVID-19 infection: Has general weakness, poor appetite, low-grade fever. Denies cough or respiratory symptoms or shortness of breath. CXR with no acute process. Continue to monitor clinically. No signs of bacterial superinfection, will not continue antibiotic for now, monitor off antibiotic. Symptomatic management for now. isolation precaution. Incentive spirometry. Hyponatremia and acute kidney injury over CKD III: Likely secondary to poor p.o. intake prior to arrival. Sodium and creatinine as above, continue with IV fluid, nephrology consult, BMP every 4 hours. History of PSC status post liver transplant x 2: Per food safety coordinator at [place], darrylay to continue Prograf and hold tacro for now given ARELIS and take daily tacro levels with a goal being 3-6. On exam: GENERAL: Alert and oriented x3. NAD, on RA. HEENT: No pallor, no icterus. Pupils equal, round and reactive to light. Oral mucosa moist. NECK: No JVD, no neck masses. HEART: S1 and S2 heard. Regular rate and rhythm. No murmur, no gallop. RESPIRATORY SYSTEM: Normal AP diameter. No accessory muscle use. No wheezing, no crackles. ABDOMEN: Soft, bowel sounds present, nontender, no distention. Healed old surgical scars - midline and hypochondriac. CENTRAL NERVOUS SYSTEM: No facial droop. Speech is clear. Obeys simple commands. Moves extremities. EXTREMITIES: No edema, no erythema seen. I have seen and examined the patient and have discussed the case with the provider above. I agree with the assessment and plan as stated. Time spent: 35 min.
[2024-10-06 14:26] LABS: Appearance Urine Turbid (Clear); Bacteria Urine Automated None Seen (None Seen); Bilirubin Urine Negative (Negative); Blood Urine Negative (Negative); Color Urine Yellow; Glucose Urine UA Negative (Negative); Granular Casts Urine Present /lpf (None Prsent); Ketones Urine Negative (Negative); Leukocyte Esterase Urine Negative (Negative); Nitrite Urine Negative (Negative); Protein Urine 2+ (Negative); RBC Urine Automated 0-2 /hpf (0-2); Specific Gravity Urine 1.013 (1.000-1.030); Urobilinogen Urine Negative (Negative); WBC Urine Automated 0-5 /hpf (0-5)
[2024-10-06 14:35] LABS: Creatinine Urine Random 184.3 mg/dl; Protein Creatinine Ratio Urine 0.7 (0-0.2); Total Protein Urine Random 131.4 mg/dl (0-11.9)
--- NOTE | 2024-10-06 15:01 | Nephrology Consultation ---
Date of Consultation October 06, 2024 Assessment & Plan (1) Acute worsening of stage 3 chronic kidney disease: Found to have ARELIS with creat of 5.1 and na 123. getting NS. Also tested for Covid. getting Iv vanco and Iv Zosyn also His last outpt labs from 08/21/2024 ---creat 2.4 k 5.4 and dropping Na of 130. Must be noted that for last 6 months Creat has been rising, K has been rising and na has been dropping. There has been Worsened left kidney status--maybe was functional before but is now non functional totally with severe Hydronephrosis Do need to check renal US and make sure there is no rt Hydronephrosis as the cause of much worsened ARELIS for now given clinical Situation and Low BP will assume he is volume depleted and continue iv fluid. Hold Lisinopril. No NSAIDS. No nephrotoxic agents. Currently written for vanco and Zosyn--this combination is quite problematic from renal standpoint and would recommend to use alternate drugs. Also given creat of 5 and rising cannot rule out the potential need of Dialysis also. Will do this discussion after overnight hydration and lab trend. (2) Acute hyponatremia: Chek urine na and urine creat and urine Osm. for now Assume Hypovolemic Hyponatremia. renal panel stat now and every 8hrs at least. Aim to raise the na by about 8 meq per day (3) SARS-CoV-2 positive: (4) Status post liver transplant: On Prograf and MMF. continue same dose. Can check Prograf level but very very slow turn around time in hospital making the test useless !!!!! Plan Case complexity high. Plan discussed with Hospitalist and in agreement. time spent 55 mins History of Present Illness Reason for Consultation: ARELIS on CKD and Hyponatremia Attending Physician: Dr Spencer History of Present Illness 59/M with CKD 3B and Worsening Kidney function as outpt for the last few months. Was seen by Nephrology at [facility] on 08/28. renal US was done and showed Worsened left Hydronephrosis. then seen by urology and [place] Surgical intervention wont help as the abnormality was too severe and irreversible state. He has history of primary sclerosing cholangitis status post liver transplant in 1997, retransplant in 2012 secondary to chronic failure and repeat transplant 2 weeks after that ( secondary to organ donor found to have squamous cell carcinoma of lung) chronic ulcerative colitis, HTN, Sharif's, CKD stage III, anemia of chronic disease and hypothyroidism who presents to ED secondary to flulike symptoms x 4 days. Found to have ARELIS with creat of 5.1 and na 123. getting NS. Also tested for Covid. Getting Iv vanco and Iv Zosyn also His last outpt labs from 08/21/2024 ---creat 2.4 k 5.4 and dropping Na of 130. Must be noted that for last 6 months Creat has been rising, K has been rising and na+ has been dropping. last few days Appetite is less for both solid and water intake. No NSAIDS and No Urinary Complaints. ROS--see HPI. 12 Systems reviewed and negative Physical Exam Physical Exam: Constitutional: Awake and alert. at bedside. Mm--moist. neck Supple. No JVD. Respiratory: lungs clear to auscultation, no wheeze, rales, rhonchi. Normal insp/exp effort Cardiovascular: RRR, no murmur, no edema Abdomen: soft, + multiple surgeries, nontender, Skin: no rashes, warm and dry normal turgor Neurologic: PERRL, EOMI, accommodation nl, no face palsy, no dysarthria CN's II-XI intact bilaterally and moves all extremities Psychiatric: A+Ox3, euthymic affect Allergies Allergy/AdvReac Type Severity Reaction Status Date / Time denosumab [From Prolia] Allergy Severe liver Verified 09/25/23 08:16 failure Sulfa (Sulfonamide Allergy Intermediate Rash Verified 09/25/23 08:16 Antibiotics) Home Medications Medication Instructions Recorded Confirmed Type aspirin 81 mg tablet,delayed 81 mg PO DAILY 06/03/20 10/06/24 History release ferrous sulfate 325 mg (65 mg 325 mg PO DAILY 06/03/20 10/06/24 History iron) tablet,delayed release metoprolol tartrate 25 mg tablet 25 mg PO BID 06/03/20 10/06/24 History mycophenolate mofetil 500 mg tablet 1,000 mg PO QAM 06/03/20 10/06/24 History mycophenolate mofetil 500 mg 500 mg PO HS 06/03/20 10/06/24 History tablet (CellCept) omeprazole 20 mg capsule,delayed 20 mg PO DAILY 06/03/20 10/06/24 History release tacrolimus 1 mg capsule, 1 mg PO Q12H 06/03/20 10/06/24 History immediate-release levothyroxine 150 mcg tablet 175 mcg PO QAM 07/23/22 10/06/24 History lisinopril 5 mg tablet 5 mg PO DAILY 09/25/23 10/06/24 History Patient History Medical History Obesity CKD (chronic kidney disease) stage III Liver transplant recipient 1997, 2012 Pancreatitis hx ~15 years ago/no issues since liver transplant Esophageal varices hx/resolved since liver transplant GERD (gastroesophageal reflux disease) Hypertension Surgical History History of colon surgery J-Pouch surgery History of lithotripsy History of cholecystectomy with liver surgery History of colonoscopy History of esophagogastroduodenoscopy (EGD) History of colostomy reversal History of colostomy Family History Father Heart disease Cancer Other No family history of adverse response to anesthesia Social History Smoking Status: Never smoker Second Hand Exposure: No; Do You Dip or Chew Tobacco: No; Hx Alcohol Use: Yes Hx Substance Use: No Preferred Language: Chadian Communication Ability: Effective Visual Impairment: No Limitations Hearing Ability: Normal Supervisor [place] Required: No Beliefs That Will Affect Care: None marital status: Current Living Situation: Spouse current occupational status: employed 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
[2024-10-06 15:28] LABS: BUN Creatinine Ratio 19.9 (10-20); Calcium 7.1 mg/dl (8.6-10.3); Creatinine Clr Calc Pharmacy 16.8 ml/min; Potassium 4.4 mmol/L (3.5-5.1)
[2024-10-06 17:02] LABS: Phosphorus 3.4 mg/dl (2.5-4.9)
[2024-10-06] MEDS: DOXYCYCLINE HYCLATE 100 MG in DEXTROSE 5% MINI-B 100 ML IV SCH (17:20)
[2024-10-06] MEDS: ACETAMINOPHEN 325 MG TAB PO PRN (17:26)
--- NOTE | 2024-10-06 17:45 | Ultrasound Report ---
EXAM: US renal/blad retro comp CLINICAL HISTORY: ARELIS, hx of hydronephrosis. Rt kidney: L=12.7cm. No hydronephrosis. 3.1x3.0x2.9cm UP cystic area. Other likely tiny cysts seen throughout. Lt kidney: L=12.5cm. Severe hydronephrosis seen, prox ureter=1.8cm. 1.1x.7x.9cm LP cystic area seen. Bladder: Unremarkable. Rt jet seen. TECHNIQUE: A renal ultrasound was performed using grayscale imaging and Doppler. COMPARISON: Comparison is made with prior imaging studies dated 09/04/2024. FINDINGS: Right Kidney: The right kidney measures 12.6 cm in its longest dimension Few renal simple renal cortical cysts, the largest is upper and measures 30 X 29 X 28 mm. No, hydronephrosis, calculi, or masses were identified. Renal parenchymal echogenicity is increased Cortical thickness: Within normal. Renal pelvis within normal. Left Kidney: The left kidney measures 12.5 cm. it shows marked hydronephrosis with upper ureteric diameter measures of 18 mm, subsequent thinning out of renal parenchyma is noted Renal parenchymal echogenicity is increased few renal cortical cysts largest measures 10X7X9 mm Urinary bladder: The urinary bladder is normally distended with normal wall thickness. No calculus or mass is noted in it. right-sided ureteral jet is seen. Left-sided ureteral jet is not seen. IMPRESSION: 1. left-sided marked hydronephrosis with thinning out of renal parenchyma and non-visualised left ureteric jet. 2. 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 3. Bilateral renal simple critical cysts. 4. No right-sided hydronephrosis. 5. No time interval changes. [facility]'s ER was called at at 4:39 PM T[facility] PACKER, 10/06/2024 and nurse Peyton was informed about the presence of important medical findings. Electronically signed by Evelyn Stephen 10-06-2024 5:44 PM
[2024-10-06] MEDS ORDERED: ONDANSETRON INJ 2 MG/ML 2 ML VIAL IV PRN (18:30)
[2024-10-06] MEDS: MYCOPHENOLATE MOFETIL 250 MG CAP PO SCH (20:23)
[2024-10-06] MEDS: METOPROLOL TARTRATE 25 MG TAB PO SCH (20:23)
[2024-10-06 20:49] LABS: BUN Creatinine Ratio 17.2 (10-20); Calcium 7.3 mg/dl (8.6-10.3); Potassium 4.2 mmol/L (3.5-5.1)
--- OUTSIDE RECORDS SUMMARY | 2024-10-06 21:12 | External Medical Summary | Continuity of Care Document ---
Author Name Unknown Organization [place] [address] [address] [place], [place] [id number] Care Team Providers Care Non Destructive Testing Scientist Name Role Phone Vicky Andrews Primary Care Physician [id number] Date(s): 09/24/24 - 09/24/[address] [place] [address] [facility] Diagnostic Radiology [address] [facility] [place] [address] Discharge Disposition: Home or Self Care Attending Physician: MD Singh Karen L Referring Physician: MD Singh Karen L Allergies, Adverse Reactions, Alerts Substance Criticality Severity Reaction Reaction Severity Status sulfa drugs 1 Unable to assess criticality Moderate rash Active Bactrim Itchy Skin rash Hives Active Prolia Shock Active 1Replaced free text allergy Immunizations Given and Recorded Vaccine Date Status Refusal Reason zoster vaccine, inactivated 1 01/03/22 Recorded SARS-CoV-2 (COVID-19) mRNA BNT-162b2 vax 2 11/03/21 Recorded SARS-CoV-2 (COVID-19) mRNA BNT-162b2 vax 3 10/25/21 Recorded SARS-CoV-2 (COVID-19) mRNA BNT-162b2 vax 4 12/22/20 Recorded SARS-CoV-2 (COVID-19) mRNA BNT-162b2 vax 5 12/05/20 Recorded tetanus toxoids-diphtheria, Td (Adult) 6 09/15/19 Recorded pneumococcal 23-valent vaccine 7 09/15/19 Recorded pneumococcal 23-valent vaccine 8 06/15/08 Recorded pneumococcal 13-valent vaccine 9 07/25/17 Recorded hepatitis B adult vaccine 10 09/19/10 Recorded hepatitis B adult vaccine 11 11/17/09 Recorded hepatitis B adult vaccine 12 10/13/09 Recorded tetanus/diphtheria/pertuss, acel (Tdap) 13 09/15/08 Recorded Not Given Vaccine Date Status Refusal Reason influenza virus vaccine, inactivated 11/11/19 Not Given Patient Refuses 1Result Comment: 2022-11-13: Historical information-source unspecified 2Result Comment: 2022-11-13: Historical information-source unspecified 3Result Comment: 2022-11-13: Historical information-source unspecified 4Result Comment: 2022-11-13: Historical information-source unspecified 5Result Comment: 2022-11-13: Historical information-source unspecified 6Result Comment: 2022-11-13: Historical information-source unspecified 7Result Comment: 2022-11-13: Historical information-source unspecified 8Result Comment: 2022-11-13: Historical information-source unspecified 9Result Comment: 2022-11-13: Historical information-source unspecified 10Result Comment: 2022-11-13: Historical information-source unspecified 11Result Comment: 2022-11-13: Historical information-source unspecified 12Result Comment: 2022-11-13: Historical information-source unspecified 13Result Comment: 2022-11-13: Historical information-source unspecified Medications aspirin 81 mg oral tablet Start: 08/24/16 1:15:00 PM EDT, 1 tab, PO, qhs, Disp# 30 Start Date: 08/24/16 Stop Date: 09/23/16 Status: Ordered calcium and vitamin d Start: 08/28/24 9:35:00 AM EDT, calcium and vitamin d, Note to Pharmacy: 2 po daily. (gummies) unknown dose Start Date: 08/28/24 Status: Ordered Canasa 1000 mg rectal suppository Start: 06/04/23 12:04:00 PM EDT, 1 supp, VT, qhs, Disp# 14 supp, Refills: 1, Pharmacy: [id number] Start Date: 06/04/23 Stop Date: 07/02/23 Status: Ordered CellCept 500 mg oral tablet Start: 06/02/24 4:14:00 PM EDT, See Instructions, Disp# 270 tab, Refills: 11, 1000mg in AM and 500 mgin PM, Note to Pharmacy: [id number] [id number], Pharmacy: [facility] Start Date: 06/02/24 Status: Ordered CellCept 500 mg oral tablet Start: 05/07/23 3:14:00 PM EDT, See Instructions, Disp# 270 tab, Refills: 11, 1000mg in AM and 500 mg in PM, Note to Pharmacy: [email or web address] [id number], Pharmacy: [facility] Start Date: 05/07/23 Status: Ordered ferrous sulfate Start: 09/27/15 8:46:00 AM EST, 325 mg =, PO, Daily Start Date: 09/27/15 Status: Ordered imiquimod 5% topical cream Start: 11/29/23 2:18:00 PM EST, 24 each, APPLY TO AFFECTED AEA SATURDAY AND SATURDAY NIGHT, WASH OFF INTHE MORNING Start Date: 11/29/23 Status: Ordered levothyroxine 175 mcg (0.175 mg) oral tablet Start: 11/29/23 2:18:00 PM EST, 90 each, TAKE ONE TABLET BY MOUTH first thing in THE morning (AT least 30 MINUTES prior TO BREAKFAST OR other meds) Start Date: 11/29/23 Status: Ordered lisinopril 5 mg oral tablet Start: 12/25/23 10:16:00 AM EST, 1 tab, PO, Daily, Disp# 90 tab, Refills: 3, Pharmacy: [facility] Start Date: 12/25/23 Status: Ordered Metoprolol Tartrate Start: 08/24/16 1:16:00 PM EDT, 25 mg =, PO, bid, Disp# 60 tab Start Date: 08/24/16 Stop Date: 09/23/16 Status: Ordered multivitamin Start: 12/03/23 12:03:00 PM EST, 1 tab, PO, Daily Start Date: 12/03/23 Status: Ordered omeprazole 20 mg oral delayed release capsule Start: 04/16/24 10:05:00 PM EDT, 1 cap, PO, bid, Disp# 180 cap, Refills: 3, TAKE 30-60 MINS BEFORE MEALS, Pharmacy: [facility] Start Date: 04/16/24 Status: Ordered tacrolimus (generic) 1 mg oral capsule Start: 06/02/24 4:14:00 PM EDT, 1 cap, PO, q12h, Disp# 270 cap, Refills: 11, Pharmacy: [facility] Start Date: 06/02/24 Status: Ordered Problem List Condition Confirmation Course Effective Dates Status Health Status Informant Acid reflux Confirmed Active Anemia Confirmed Active Breast mass, R Confirmed Active CAD Confirmed Active CKD (chronic kidney disease), stage IIIb Confirmed Active Congestive heart failure, unspecified 1 Confirmed Active Depression Confirmed Active Esophageal varices Confirmed Active Gallbladder cancer Confirmed Active GERD Confirmed Active Liver transplant recipient Confirmed Active Hyperparathyroidism Confirmed Active HTN (hypertension) Confirmed Active Hypothyroidism Confirmed Active Liver disease Confirmed Active Liver tumor Confirmed Active 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, 3 Confirmed 08/16/13 Active Osteoporosis Confirmed Active Pancreatitis Confirmed Active Renal calculi Confirmed Active Sclerosing cholangitis Confirmed Active Tachycardia Confirmed Active Tenosynovitis Confirmed Active Encounter for aftercare following liver transplant Confirmed Active Ulcerative colitis Confirmed Active Vitamin D deficiency Confirmed Active 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/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 1Added by rule based on previous diagnosis(es) of heart failure + Peritoneal Fluid Culture, Few Klebsiella Pneumoniae (ESBL) 3COLL: 08/16/13 CULTURE, TISSUE KLEBSIELLA PNEUMONIAE (ESBL) FROM BROTH ONLY 4Tissue culture VRE Procedures Procedure Date Related Diagnosis Body Site Status Insertion of biliary stentm , Multiple 06/2013 Completed LTx - Liver transplant x 2 2012 Completed Endoscopy 1 2009 Completed Esophagogastroduodenoscopy 2009 Completed Esophagogastroduodenoscopy 10/11/09 Completed Colonoscopy 2009 Completed Exploratory laparotomy 2002 Co mpleted Closure of colostomy 2001 Comp leted Scar tissue removed from [facility] transplant 2000 Completed Creation of ileo-anal pouch 1999 Completed LTx - Liver transplant 09/11/98 Co mpleted Colectomy 1997 Completed 1of pouch Results Radiology Reports * Exam Date Time Procedure Performing Provider Status 09/24/24 9:57 AM MRI Abdomen w/ + w/o Contrast Joseline r, Tana L; Final Notes: (MRI Abdomen w/ + w/o Contrast) Reason For Exam: S/P liver txp; assess for stricture MRI Abdomen w/ + w/o Contrast EXAMINATION: MRI Abdomen w/ + w/o Contrast CLINICAL HISTORY: S/P liver txp; assess for stricture COMPARISON: Outside US 09/04/2024, MRI abdomen 09/08/2015 TECHNIQUE: MRI Abdomen w/ + w/o Contrast CONTRAST: Contrast Type (IV): Gadavist Contrast Volume (IV) in ml: 10.00 Contrast Type (Oral): Contrast Volume (Oral) in ml: FINDINGS: Lower chest: Normal ABDOMEN Liver, Gallbladder \T\ bile ducts: Postsurgical changes of liver transplant. No biliary ductal dilation. CBD measuring 0.7 cm. No focal liver lesions. Pancreas: No pancreatic ductal dilation. Scattered tiny cyst along the pancreas likely small sidebranch IPMN's. Spleen: Normal Adrenals: Normal Kidneys, collecting system and ureters: Severe left hydronephrosis caused by proximal ureteric stone measuring 1 cm, unchanged compared to prior ultrasound from 09/04/2024. Retroperitoneum, lymph nodes, and vessels: Upper abdominal collaterals. No lymphadenopathy. Bowel \T\ Mesentery: No Osseous and body wall: Postsurgical changes anterior abdominal wall. Degenerative changes of the spine. IMPRESSION: 1. Postsurgical changes from liver transplant, no evidence of biliary ductal dilation or stricturing. 2. Unchanged severe left hydronephrosis caused by proximal ureteric stone. [place] Act 112: This study does not meet the requirements of [place] Act 112. NON-EMERGENT ACTIONABLE FINDINGS Recommendation: None. [REC0] Workstation ID: [id number] Final Dictated by:Darshan Palacios MD, Hussain Dictated DT/TM:09/24/2024 11:06 Signed by:Darshan Palacios MD, Hussain Signed (Electronic Signature):09/24/2024 11:05 Social History Social History Type Response Smoking Status Never smoked cigaret ryan Sex Male Sex Representation Male (finding) Patient Care team information Care Team Personnel Name: DAYLIN Vega Michelle Position: RN - Outpt Schedule III Member Role: Lifetime - never expires Name: DAYLIN Jasmine Colleen E Position: RN - Outpatient Member Role: Lifetime - never expires Address: [facility] [address] [place] [address] [place] Name: MD Darryl, Vicky Pisano Position: Referring Member Role: Primary Care Provider Address: [facility] [address] [facility] [place] [address] [place] Name: MARIANELA Cullen Bridget M Position: Physician Marine Driller - Vascular Surg Member Role: Lifetime - never expires Address: [address] [place] [address] [address] [place] [address] Name: DAYLIN Key, Lali Position: RN Member Role: Lifetime - never expires Address: [facility] [address] [place] [address] [place] Name: DAYLIN Garza, Drea Andrade Position: RN - Outpatient Member Role: Lifetime - never expires Address: [facility] [address] [place] [address] Name: DAYLIN Verde, Julissa Position: RN - Perioperative Member Role: Lifetime - never expires Name: Nubia Kelly Tracy M Position: Pharmacist Member Role: Pharmacy - Lifetime Address: [address] [address] [place] Care Team Related Persons Name: RODRIGUEZ DUNNE Name: JAY DUNNE
--- OUTSIDE RECORDS SUMMARY | 2024-10-06 21:12 | External Medical Summary | Continuity of Care Document ---
Author Name Unknown Organization [facility] [address] [place] [address] [place] LINK [phone] Care Team Providers Care Legal Transcriptionist Name Role Phone Vicky Andrews Primary Care Physician [phone] [phone] Date(s): 09/22/24 - 09/22/24 [facility] [address] [facility] [address], [address]tr[address], [address] [place] [phone] Encounter Diagnosis Body mass index [BMI] 31.0-31.9, adult(Discharge Diagnosis) - 09/22/24 Ulcerative colitis(Discharge Diagnosis) - 09/22/24 PSC (primary sclerosing cholangitis)(Discharge Diagnosis) - 09/22/24 CKD (chronic kidney disease)(Discharge Diagnosis) - 09/22/24 Discharge Disposition: Home or Self Care Attending Physician: MD Palmer Matthew D Allergies, Adverse Reactions, Alerts Substance Criticality Severity Reaction Reaction Severity Status sulfa drugs 1 Unable to assess criticality Moderate rash Active Bactrim Itchy Skin rash Hives Active Prolia Shock Active 1Replaced free text allergy Assessment and Plan Extracted from: Title:Clinical Document Author:MD Palmer Matth ew D Date:09/22/24 GASTROENTEROLOGY OUTPATIENT NOTE Name: SIDDHARTHA DYKES Patient Number: [id number] : 1965 Date of Service: 09/22/[address] Andrews: This letter is being sent to you to follow up the visit I had with Siddhartha Dykes at the [facility] on September 22, 2024. Mr. Dykes was returning in routine follow up of his UC (status post distant J-pouch formation) complicated by recurrent bouts of acute pouchitis. We had last seen Mr. Dykes in this clinic in January 2023, and in May 2023 for his latest endoscopic evaluation (an EGD and pouchoscopy). The EGD demonstrated mild-moderate eosinophilic and basophilic predominant inflammation in parts of his esophagus and we suggested that he increase the frequency of his PPI therapy. The pouchoscopy demonstrated mild non-specific inflammation at the inlet of his pouch and we had recommended that he continue to monitor his GI symptoms carefully. Since then, he indicates that he has been doing fine from a GI perspective, and denies any current abdominal pain, rectal bleeding or change in his bowel habits to suggest that he has active pouchitis. He denied alarm-type symptoms, including fevers, chills, night sweats, weight changes or other overt bleeding. Also denied any findings suggestive of extra-intestinal manifestations of IBD, including eye pain or redness, vision changes, oral sores, lumps or bumps (including on the extremities), numbness, tingling, weakness, new skin changes (including rashes or sores), or redness or swelling. He denies new joint issues but does note that he gets recurrent pain in his knees and ankles with activity (which he attributes to wear and tear). REVIEW OF SYSTEMS:A 14-point review of systems was negative except for what is explicitly described above. Medications: aspirin (aspirin 81 mg oral tablet) 81 mg PO qhs ferrous sulfate 325 mg PO Daily imiquimod topical (imiquimod 5% topical cream) 24 each, APPLY TO AFFECTED AEA SATURDAY AND SATURDAY NIGHT, WASH OFF IN THE MORNING Responsible Provider: NABIL MAYregor 11/29 14:18 levothyroxine (levothyroxine 175 mcg (0.175 mg) oral tablet) 90 each, TAKE ONE TABLET BY MOUTH first thing in THE morning (AT least 30 MINUTES prior TO BREAKFAST OR other meds) Responsible Provider: Vicky Andrewsregor 11/29 14:18 lisinopril (lisinopril 5 mg oral tablet) 1 tab PO Daily mesalamine (Canasa 1000 mg rectal suppository) 1,000 mg MN qhs metoprolol (Metoprolol Tartrate) 25 mg PO bid multivitamin 1 tab PO Daily mycophenolate mofetil (CellCept 500 mg oral tablet) 1000mg in AM and 500 mg in PM mycophenolate mofetil (CellCept 500 mg oral tablet) 1000mg in AM and 500 mg in PM omeprazole (omeprazole 20 mg oral delayed release capsule) 1 cap PO bid TAKE 30- 60 MINS BEFORE MEALS tacrolimus (tacrolimus (generic) 1 mg oral capsule) 1 mg PO q12h unlisted medication (calcium and vitamin d) Past Medical History: Reviewed and unchanged aside from what is noted above. Past Surgical History:Reviewed and unchanged aside from what is noted above. Family History: Reviewed and unchanged aside from what is noted above. Social History: Reviewed and unchanged aside from what is noted above. Allergies: Prolia(Shock) Bactrim(Hives) Bactrim(Skin rash) Bactrim(Itchy) sulfa drugs(rash) OBJECTIVE Vitals: Last Updated 09/22/24 09:24 Date Temp BP Location Pulse RR SpO2 Pain 09/22/24 36.7 122/78 78 0 08/28/24 104/64 Left Arm 64 0 02/21/24 136/78 Left Arm 73 Vital Signs are the last 3 documented. No Orthostatic Data Available Height and Weight: Last Updated 09/22/24 09:24 Date BMI Wt(kg) Wt(lb) Method Ht(cm) (ft-in) Method 09/22/24 31.93 102.3 225 Standing Scale 179 5-10 Standing 08/28/24 33.3 103.5 228 Standing Scale 176.3 5-9 Standing 02/21/24 35.82 114 251 Standing Scale 178.4 5-10 Standing Heights and Weights are the last 3 documented. Physical Exam: General: No acute distress, resting comfortably in chair. HEENT: PERRL with no erythema. No palpable anterior cervical or supraclavicular lymphadenopathy. Moist mucous membranes. Cardiac: Regular rate and rhythm. No murmurs, rubs, or gallops. Lungs: Clear to auscultation bilaterally. No wheezing, rales, or rhonchi. Abdomen: Soft, nontender to firm palpation, nondistended. Bowel sounds present. Extremities: No clubbing, cyanosis, or edema. Skin: Warm, dry, and intact. No skin rashes or findings seen. Psych: Appropriate mood and affect. MSK: No gross abnormalities observed. Neuro: Crude touch sensationintact, moving all four extremities spontaneously Endoscopy: Last EGD and pouchoscopy were performed in May 2023 and reviewed with the patient as described. Imaging: No GI imaging since last visit. Labs:Had a CMP checked in July 2024, which was notable for a stably elevated BUN and Cr, as well as a newly elevated ALP (178). ASSESSMENT AND RECOMMENDATIONS: Mr. 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 Currently, he is doing very well from a GI perspective and is describing no symptoms to suggest active pouchitis. I recommended that we recheck some blood work, including a CBC, inflammatory and nutritional markers, as well as another CMP to recheck the ALP. If that is still elevated, particularly given his history, it will be important to re-image his liver with a dedicated liver MRI and MRCP. We will plan for another EGD and pouchoscopy in a year (2024) if he is otherwise symptomatically stable, to follow up on the issues described above. I have no medication recommendations at this time, though if he develops another bout of acute pouchitis, I recommended that he try a 2-week course of ciprofloxacin. Alternatively, we could try rifaximin, though he has had difficulty getting that covered by his insurance. We will tentatively plan for a follow up visit in the clinic in 1 year, after the endoscopic examinations outlined above have been completed. He expressed understanding and agreement with this. He should also follow up with you, his PCP as previously directed for all age-appropriate screening intervention. Please do not hesitate to contact me should you have any questions or concerns about the contents of this letter. Sincerely, Tico Palmer MD PhD Immunizations Given and Recorded Vaccine Date Status [...] Start: 06/04/23 12:04:00 PM EDT, 1 supp, MN, qhs, Disp# 14 supp, Refills: 1, [facility]: [id number] Start Date: 06/04/23 Stop Date: 07/02/23 Status: Ordered CellCept 500 mg oral tablet Start: 06/02/24 4:14:00 PM EDT, See Instructions, Disp# 270 tab, Refills: 11, 1000mg in AM and 500 mgin PM, Note to Pharmacy: ZLynda [id number], Pharmacy: [facility] Start Date: 06/02/24 Status: Ordered CellCept 500 mg oral tablet Start: 05/07/23 3:14:00 PM EDT, See Instructions, Disp# 270 tab, Refills: 11, 1000mg in AM and 500 mg in PM, Note to Pharmacy: Brooke [id number], Pharmacy: [facility] Start Date: 05/07/23 Status: Ordered ferrous [...] [facility] Start Date: 06/02/24 Status: Ordered Mental Status 09/22/24 Barriers to Learning one year Vision imp airment, Other: wears glasses Mandatory Health Literacy Documentation Yes Health Literacy Communication Barriers N ever Primary Language Yakut Problem List Condition Confirmation Course Effective Dates [...] (ESBL) FROM [facility] ONLY 4Tissue culture VRE Diagnosis Diagnosis Type Effective Dates Health Status Clinical Service Informant Body mass index [BMI] 31.0-31.9, adult Discharge Diagnosis 09/22/24 Non-Specified PSC (primary sclerosing cholangitis) Discharge Diagnosis 09/22/24 Non-Specified CKD (chronic kidney disease) Discharge Diagnosis 09/22/24 Non-Specified Ulcerative colitis Discharge Diagnosis 09/22/24 Non-Specified Procedures Procedure Date Related Diagnosis Body Site Status Insertion of biliary stentm , Multiple 06/2013 Completed LTx - Liver transplant x 2 2012 Completed Endoscopy 1 2009 Completed Esophagogastroduodenoscopy 2009 Completed Esophagogastroduodenoscopy 10/11/09 Completed Colonoscopy 2008 Completed Exploratory laparotomy 2002 Co mpleted Closure of colostomy 2001 Comp leted Scar tissue removed from riky er transplant 2000 Completed Creation of ileo-anal pouch 1999 Completed LTx - Liver transplant 09/11/98 Co mpleted Colectomy 1997 Completed 1of pouch Results Laboratory List Name Date Erythrocyte Sedimentation Rate (SEDIMENT ATION RATE) 09/22/24 Folic Acid Level (FOLIC ACID) 09/22/24 Magnesium Level (MAGNESIUM) 09/22/24 Vitamin B12 Level (VITAMIN B12) 09/22/24 C Reactive Protein, Quantitation (CRP QU ANTITATION) 09/22/24 Comprehensive Metabolic Panel (COMP META B PANEL) 09/22/24 Phosphorus Level (PHOSPHORUS) 09/22/24 Request to FAX Report (First Location) ( ACC NO TO BE FAXED) 09/22/24 Complete Blood Count w Differential (CBC ,DIFFH) 09/22/24 Request to FAX Report (First Location) ( ACC NO TO BE FAXED) 09/22/24 Vitamin D, 25-Hydroxy Level, Total (25-H YDROXY VITAMIN D) 09/22/24 Most recent to oldest [Reference Range]: 1 2 CReacProt [<0.50 mg/dL] <0.30 mg/dL (09/22/24 10:25 AM) eGFR CKD-EPI [>60 mL/min/1.73 m2] 29 mL/ min/1.73 m2 *LOW* (09/22/24 10:25 AM) Vitamin D, 25-Hydroxy [30-100 ng/mL] 30 ng/mL 1 (09/22/24 10:23 AM) Estimated CrCl 37.62 mL/min (09/22/24 11:38 AM) Phone No [phone] (09/22/24 10:25 AM) [phone] (09/22/24 10:23 AM) Faxed on: 09/23/24 08:03 (09/22/24 10:25 AM) 09/23/24 08:03 (09/22/24 10:23 AM) MPV [9.0-12.2 fL] 11.0 fL (09/22/24 10:23 AM) Immature Gran% 0.4 % (09/22/24 10:23 AM) Neut% 60.8 % (09/22/24 10:23 AM) Lymph% 19.0 % (09/22/24 10:23 AM) Winn% 14.0 % (09/22/24 10: AM) Baso% 0.4 % (09/22/24: AM) Eos% 5.4 % (09/22/24: AM) Immat Gran, Abs [0-0.4 K/uL] 0.02 K/uL (09/22/24 10: AM) Neut, Abs [2.0-7.7 K/uL] 3.27 K/uL (09/22/24 10: AM) Lymph, Abs [1.0-3.4 K/uL] 1.02 K/uL (09/22/24 10: AM) Winn, Abs [0-1.0 K/uL] 0.75 K/uL (09/22/24: AM) Baso, Abs [0-0.1 K/uL] 0.02 K/uL (09/22/24: AM) Eos, Abs [0-0.5 K/uL] 0.29 K/uL (09/22/24 10: AM) Type of Diff: AUTO *Unknown* (09/22/24: AM) RDW [11.5-14.2 %] 14.4 % *HI* (09/22/24: AM) Anion Gap [5-14 mmol/L] 11 mmol/L (09/22/24: AM) Alb [3.5-5.2 g/dL] 4.1 g/dL (09/22/24 10: AM) Alk Phos [40-130 unit/L] 198 unit/L 2 *HI* (09/22/24: AM) ALT [0-41 unit/L] 35 unit/L (09/22/24 10: AM) AST [0-40 unit/L] 25 unit/L (09/22/24 10: AM) B12 [211-946 pg/mL] 655 pg/mL (09/22/24 10: AM) BUN [6-23 mg/dL] 52 mg/dL *HI* (09/22/24 10: AM) Ca [8.4-10.2 mg/dL] 8.3 mg/dL *LOW* (09/22/24: AM) Cl- [98-107 mmol/L] 112 mmol/L 3 *HI* (09/22/24 AM) HCO3 [22-29 mmol/L] 13 mmol/L *Critical Low* (09/22/24: AM) Cret [0.70-1.30 mg/dL] 2.49 mg/dL *HI* (09/22/24 AM) ESR [0-25 mm/hr] 32 mm/hr *HI* (09/22/24: AM) Folate [>7.2 ng/mL] >20.0 ng/mL (09/22/24: AM) Glu [74-109 mg/dL] 109 mg/dL 4 (09/22/24: AM) Hct [39-48 %] 33.4 % *LOW* (09/22/24: AM) Hgb [13.0-17.0 g/dL] 10.1 g/dL *LOW* (09/22/24: AM) K [3.5-5.1 mmol/L] 5.4 mmol/L 5 *HI* (09/22/24: AM) MCH [28-33 pg] 28.3 pg (09/22/24: AM) MCHC [32-36 g/dL] 30.2 g/dL *LOW* (09/22/24: AM) MCV [81-96 fL] 93.6 fL (09/22/24 AM) Mg [1.6-2.6 mg/dL] 1.7 mg/dL (09/22/24: AM) Na [136-145 mmol/L] 136 mmol/L 6 (09/22/24: AM) PO4 [2.5-4.5 mg/dL] 2.8 mg/dL (09/22/24: AM) Plts [150-350 K/uL] 238 K/uL (09/22/24 10: AM) RBC [4.40-5.60 M/uL] 3.57 M/uL *LOW* (10/29/24 10:23 AM) T Bili [0.0-1.2 mg/dL] 0.3 mg/dL (09/22/24 10:25 AM) Prot [6.4-8.3 g/dL] 7.9 g/dL (09/22/24 10:25 AM) WBC [4.0-10.4 K/uL] 5.37 K/uL (09/22/24 10:23 AM) 1Result Comment: Deficiency: <20 ng/mL Insufficiency: 21-29 ng/mL Sufficiency: 30-100 ng/mL Potenial Toxicity: >150 ng/mL 2Result Comment: Low levels of ALKP may indicate a deficiency in zinc, magnesium, or malnutritionbutcan also be an indicator of a rare genetic disease hypophosphatasia (HPP). 3Result Comment: CHECKED 4Result Comment: ADA recommendation for FASTING Serum/Plasma Glucose: Normal: 70-100 mg/dL Prediabetes: 100-125 mg/dL Diabetes: 126 mg/dL or higher 5Result Comment: CHECKED 6Result Comment: CHECKED Vital Signs Most recent to oldest [Reference Range]: 1 Height 179 cm (09/22/24 9:24 AM) Patient Weight 102.3 kg (09/22/24 9:24 AM) Body Mass Index 31.93 kg/m2 (09/22/24 9:24 AM) Temperature [36.5-37.9 DegC] 36.7 DegC (09/22/24 9:24 AM) Heart Rate 78 bpm (09/22/24 9:24 AM) Blood Pressure 122/78mmHg (09/22/24 9:24 AM) Cuff Pulse Pressure 44 mmHg (09/22/24 9:24 AM) Social History Social History Type Response Smoking Status Never smoked cigaret ryan Sex Male Sex Representation Male (finding) Gastroenterology Outpatient Note * MD Spencer, Tico Penaloza: PERFORM, MODIFY Event Display: Gastroenterology Outpt Note Authored Date: GASTROENTEROLOGY OUTPATIENT NOTE Name: SIDDHARTHA DYKES Patient Number: [id number] : 1965 Date of Service: 09/22/[address] Andrews: This letter is being sent to you to follow up the visit I had with Siddhartha Dykes at the [facility] on September 22, 2024. Mr. Dykes was returning in routine follow up of his UC (statuspost distant J-pouch formation) complicated by recurrent bouts of acute pouchitis. We had last seenMr. Dykes in this clinic in January 2023, and in May 2023 for his latest endoscopic evaluation (an EGD and pouchoscopy). The EGD demonstrated mild-moderate eosinophilic and basophilic predominant inflammation in parts of his esophagus and we suggested that he increase the frequency of his PPI therapy. The pouchoscopy demonstrated mild non-specific inflammation at the inlet of his pouch and we hadrecommended that he continue to monitor his GI symptoms carefully. Since then, he indicates that hehas been doing fine from a GI perspective, and denies any current abdominal pain, rectal bleeding or change in his bowel habits to suggest that he has active pouchitis. He denied alarm-type symptoms, including fevers, chills, night sweats, weight changes or other overt bleeding. Also denied any findings suggestive of extra- intestinal manifestations of IBD, includingeye pain or redness, vision changes, oral sores, lumps or bumps (including on the extremities), numbness, tingling, weakness, new skin changes (including rashes or sores), or redness or swelling. He denies new joint issues but does note that he gets recurrent pain in his knees and ankles with activity (which he attributes to wear and tear). REVIEW OF SYSTEMS:A 14-point review of systems was negative except for what is explicitly described above. Medications: aspirin (aspirin 81 mg oral tablet) 81 mg PO qhs ferrous sulfate 325 mg PO Daily imiquimod topical (imiquimod 5% topical cream) 24 each, APPLY TO AFFECTED AEA SATURDAY AND SATURDAY NIGHT, WASH OFF IN THE MORNING Responsible Provider: NABIL MAY Jessica 11/29 14:18 levothyroxine (levothyroxine 175 mcg (0.175 mg) oral tablet) 90 each, TAKE ONE TABLET BY MOUTH first thing in THE morning (AT least 30 MINUTES prior TO BREAKFAST OR other meds) Responsible Provider: Vicky Andrews Jessica 11/29 14:18 lisinopril (lisinopril 5 mg oral tablet) 1 tab PO Daily mesalamine (Canasa 1000 mg rectal suppository) 1,000 mg MN qhs metoprolol (Metoprolol Tartrate) 25 mg PO bid multivitamin 1 tab PO Daily mycophenolate mofetil (CellCept 500 mg oral tablet) 1000mg in AM and 500 mg in PM mycophenolate mofetil (CellCept 500 mg oral tablet) 1000mg in AM and 500 mg in PM omeprazole (omeprazole 20 mg oral delayed release capsule) 1 cap PO bid TAKE 30- 60 MINS BEFORE MEALS tacrolimus (tacrolimus (generic) 1 mg oral capsule) 1 mg PO q12h unlisted medication (calcium and vitamin d) Past Medical History: Reviewed and unchanged aside from what is noted above. Past Surgical History:Reviewed and unchanged aside from what is noted above. Family History: Reviewed and unchanged aside from what is noted above. Social History: Reviewed and unchanged aside from what is noted above. Allergies: Prolia(Shock) Bactrim(Hives) Bactrim(Skin rash) Bactrim(Itchy) sulfa drugs(rash) OBJECTIVE Vitals: Last Updated 09/22/24 09:24 Date Temp BP Location Pulse RR SpO2 Pain 09/22/24 36.7 122/78 78 0 08/28/24 104/64 Left Arm 64 0 02/21/24 136/78 Left Arm 73 Vital Signs are the last 3 documented. No Orthostatic Data Available Height and Weight: Last Updated 09/22/24 09:24 Date BMI Wt(kg) Wt(lb) Method Ht(cm) (ft-in) Method 09/22/24 31.93 102.3 225 Standing Scale 179 5-10 Standing 08/28/24 33.3 103.5 228 Standing Scale 176.3 5-9 Standing 02/21/24 35.82 114 251 Standing Scale 178.4 5-10 Standing Heights and Weights are the last 3 documented. Physical Exam: General: No acute distress, resting comfortably in chair. HEENT: PERRL with no erythema. No palpable anterior cervical or supraclavicular lymphadenopathy. Moist mucous membranes. Cardiac: Regular rate and rhythm. No murmurs, rubs, or gallops. Lungs: Clear to auscultation bilaterally. No wheezing, rales, or rhonchi. Abdomen: Soft, nontender to firm palpation, nondistended. Bowel sounds present. Extremities: No clubbing, cyanosis, or edema. Skin: Warm, dry, and intact. No skin rashes or findings seen. Psych: Appropriate mood and affect. MSK: No gross abnormalities observed. Neuro: Crude touch sensationintact, moving all four extremities spontaneously Endoscopy: Last EGD and pouchoscopy were performed in May 2023 and reviewed with the patient as described. Imaging: No GI imaging since last visit. Labs:Had a CMP checked in July 2024, which was notable for a stably elevated BUN and Cr, as well as a newly elevated ALP (178). ASSESSMENT AND RECOMMENDATIONS: Mr. 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 Currently, he is doing very well from a GI perspective and is describing no symptoms to suggest active pouchitis. I recommended that we recheck some blood work, including a CBC, inflammatory and nutritional markers, as wellas another CMP to recheck the ALP. If that is still elevated, particularly given his history, it will be important to re-image his liver with a dedicated liver MRI and MRCP. We will plan for another EGD and pouchoscopy in a year (2024) if he is otherwise symptomatically stable, to follow up on the issues described above. I have no medication recommendations at this time, though if he develops another bout of acute pouchitis, I recommended that he try a 2-week course of ciprofloxacin. Alternatively, we could try rifaximin, though he has had difficulty getting that covered by his insurance. We will tentatively plan for a follow up visit in the clinic in 1 year, after the endoscopic examinations outlined above have been completed. He expressed understanding and agreement with this. He shouldalso follow up with you, his PCP as previously directed for all age-appropriate screening intervention. Please do not hesitate to contact me should you have any questions or concerns about the contents of this letter. Sincerely, Tico Palmer MD PhD Electronic Signature on File CC: Vicky Andrews MD [address] [id number] * Electronically Reviewed/Signed by: Tico Palmer MD,PhD Author Signature Dt/Tm:09/22/2024 10:08AM Associate Prof. of Medicine, Div. of GI/Hepatology [facility] [address], [facility] [id number], [place] [address] , [facility] Patient Care team information Care Team Personnel Name: DAYLIN Vega, Kaci Position: RN - Outpt Schedule III Member Role: Lifetime - never expires Name: DAYLIN Jasmine, Jenn Bran Position: RN - Outpatient Member Role: Lifetime - never expires Address: [facility] [address] [place] [address] [place] Name: MD Darryl, Vicky Pisano Position: Referring Member Role: Primary Care Provider Address: [facility] [address] [place] [address] [place] Name: MARIANELA Cullen Bridget M Position: Physician Lung Puller - Vascular Surg Member Role: Lifetime - never expires Address: [address] [facility] [address] [place] [address] Name: DAYLIN Key, Lali Position: RN Member Role: Lifetime - never expires Address: [facility] [address] [place] [address] Name: DAYLIN Garza, Drea Andrade Position: RN - Outpatient Member Role: Lifetime - never expires Address: [facility] [address] [place] [address] [place] Name: DAYLIN Verde Stacey Position: RN - Perioperative Member Role: Lifetime - never expires Name: Nubia Kelly Tracy M Position: Pharmacist Member Role: Pharmacy - Lifetime Address: [facility] [address] [place] [address] [place] Care Team Related Persons Name: RODRIGUEZ DYKES Name: JAY DYKES
--- OUTSIDE RECORDS SUMMARY | 2024-10-06 21:12 | External Medical Summary | Continuity of Care Document ---
Author Name Unknown Organization [facility] Address [address] [place] [id number] Care Team Providers Care Cloth Napping Supervisor Name Role Phone AndrewsVicky Primary Care Physician [phone] [id number] Date(s): 09/29/24 - 09/29/[address] [phone] Discharge Disposition: Home or Self Care Attending [...] Start: 06/04/23 12:04:00 PM EDT, 1 supp, ID, qhs, Disp# 14 supp, Refills: 1, [facility]: [id number] Start Date: 06/04/23 Stop Date: 07/02/23 Status: Ordered CellCept 500 mg oral tablet Start: 06/02/24 4:14:00 PM EDT, See Instructions, Disp# 270 tab, Refills: 11, 1000mg in AM and 500 mgin PM, Note to Pharmacy: Z94.4, Z79.899, Pharmacy: [facility] Start Date: 06/02/24 Status: Ordered CellCept 500 mg oral tablet Start: 05/07/23 3:14:00 PM EDT, See Instructions, Disp# 270 tab, Refills: 11, 1000mg in AM and 500 mg in PM, Note to Pharmacy: Z94.4, Z79.899, Pharmacy: [facility] Start Date: 05/07/23 Status: Ordered ferrous sulfate [...] Exam Date Time Procedure Performing Provider Status 09/29/24 1:34 PM US Abdomen Complete De Oliveira, Natali; Final Notes: (US Abdomen Complete) Reason For Exam: s/p liver txp; elevated LFTs; assess for stenosis US Abdomen Complete EXAMINATION: US Abdomen Complete CLINICAL HISTORY: Z94.4: Liver transplant status; 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 LIVER: Normal size, contour, and echogenicity. No solid mass is seen. Length: 15.4 cm. GALLBLADDER AND BILE DUCTS: Bile ducts: No biliary dilation. Common bile duct: 2 mm. Gallbladder: Absent . RIGHT KIDNEY : Normal in size, shape, and echogenicity. Renal cortical thickness is maintained. No hydronephrosis. Length: 10.8 cm. There is a 3 cm cyst at the upper pole of the right kidney. SPLEEN: Normal in size. Longest splenic length: 12.4 cm. AORTA/IVC: The IVC and aorta are normal in caliber where visualized. OTHER: No free fluid. DOPPLER EVALUATION: The main portal vein is [patent, with flow in the appropriate direction]. Main portal vein velocity is [20] cm/sec. Diameter is 1.1 cm Right and left portal veins are [patent, with antegrade flow]. The main hepatic arterial waveform is within normal limits, with prompt systolic upstrokes and continuous antegrade diastolic flow.] Peak systolic velocity in the main hepatic artery is [Range 93.8 -138.7cm/s]. Appropriate arterial waveforms are seen in the right hepatic artery and the left hepaticartery with resistive indices of [0.73], and [0.7], respectively. Right, middle and left hepatic veins and IV are [patent, with appropriate waveforms]. Splenic vein and superior mesenteric vein are [patent, with antegrade flow]. IMPRESSION: 1. Hepatic vasculature are patent and demonstrate normal waveforms. In particular, there is no evidence of hepatic artery stenosis. 2. Normal abdominal ultrasound [place] Act 112: This study does not meet the requirements of [place] Act 112. 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 LIVER: Normal size, contour, and echogenicity. No solid mass is seen. Length: 15.4 cm. GALLBLADDER AND BILE DUCTS: Bile ducts: No biliary dilation. Common bile duct: 2 mm. Gallbladder: Absent . RIGHT KIDNEY : Normal in size, shape, and echogenicity. Renal cortical thickness is maintained. No hydronephrosis. Length: 10.8 cm. There is a 3 cm cyst at the upper pole of the right kidney. SPLEEN: Normal in size. Longest splenic length: 12.4 cm. AORTA/IVC: The IVC and aorta are normal in caliber where visualized. OTHER: No free fluid. DOPPLER EVALUATION: The main portal vein is [patent, with flow in the appropriate direction]. Main portal vein velocity is [20] cm/sec. Diameter is 1.1 cm Right and left portal veins are [patent, with antegrade flow]. The main hepatic arterial waveform is within normal limits, with prompt systolic upstrokes and continuous antegrade diastolic flow.] Peak systolic velocity in the main hepatic artery is [Range 93.8 -138.7cm/s]. Appropriate arterial waveforms are seen in the right hepatic artery and the left hepaticartery with resistive indices of [0.73], and [0.7], respectively. Right, middle and left hepatic veins and IV are [patent, with appropriate waveforms]. Splenic vein and superior mesenteric vein are [patent, with antegrade flow]. IMPRESSION: 1. Hepatic vasculature are patent and demonstrate normal waveforms. In particular, there is no evidence of hepatic artery stenosis. 2. Normal abdominal ultrasound [place] Act 112: This study does not meet the requirements of [place] Act 112. Workstation ID: [id number] Final Dictated by:MD Pulido Margaret Dictated DT/TM:10/01/2024 9:04 Signed by:MD Pulido Margaret Signed (Electronic Signature):10/01/2024 9:03 a Social History Social History Type Response Smoking Status Never smoked cigaret ryan Sex Male Sex Representation Male (finding) Patient Care team information Care Team Personnel Name: DAYLIN Vega Michelle Position: RN - Outpt Schedule III Member Role: Lifetime - never expires Name: DAYLIN Jasmine, Jenn Bran Position: RN - Outpatient Member Role: Lifetime - never expires Address: [facility] [address] [place] [address] [place] Name: MD Darryl, Vicky Pisano Position: Referring Member Role: Primary Care Provider Address: [facility] [address] [place] [address] [place] Name: MARIANELA Cullen Bridget M Position: Physician Taker Down - Vascular Surg Member Role: Lifetime - never expires Address: [address] Name: DAYLIN Key, Lali Position: RN Member Role: Lifetime - never expires Address: [facility] [address] [place] [address] [place] Name: DAYLIN Garza, Drea Andrade Position: RN - Outpatient Member Role: Lifetime - never expires Address: [facility] [address] [place] [address] [place] Name: DAYLIN Verde, Julissa Position: RN - Perioperative Member Role: Lifetime - never expires Name: Nubia Kelly Tracy M Position: Pharmacist Member Role: Pharmacy - Lifetime Address: [facility] [address] Care Team Related Persons Name: RODRIGUEZ DUNNE Name: JAY DUNNE
--- OUTSIDE RECORDS SUMMARY | 2024-10-06 21:12 | External Medical Summary | Continuity of Care Document ---
Author Name Unknown Organization [facility] [address] Address [address] [place] [id number] Care Team Providers Care Casework Specialist Name Role Phone AndrewsVicky Primary Care Physician [phone] Encounter [facility] [id number] Date(s): 09/22/24 - 09/22/24 [facility] [address] [place] [address] [id number] Discharge Disposition: Home or Self Care Attending Physician: MD Alejo Ronald P Referring Physician: MD Alejo Ronald P Allergies, Adverse Reactions, Alerts Substance Criticality Severity Reaction Reaction Severity Status Prolia Shock Active sulfa drugs 1 Unable to assess criticality Moderate rash Active Bactrim Itchy Skin rash Hives Active 1Replaced free text allergy Immunizations Given [...] Start: 06/04/23 12:04:00 PM EDT, 1 supp, LA, qhs, Disp# 14 supp, Refills: 1, [id number] Start Date: 06/04/23 Stop Date: 07/02/23 Status: [...] PM, Note to Pharmacy: Z94.4, Z79.899, Pharmacy: [facility] Start Date: 05/07/23 Status: Ordered ferrous [...] 1of pouch Results Laboratory List Name Date Protein/Creatinine Ratio, Urine (UR PROT /CREAT RATIO) 09/22/24 Urine Analysis w/ Reflexed Microscopic. (URINE W/REFLEX MICR) 09/22/24 Parathyroid Hormone, Intact (PTH, INTACT ) 09/22/24 Most recent to oldest [Reference Range]: 1 Prot/Cret (u) 0.27 (09/22/24 10:31 AM) Protein (u) ran [<26 mg/dL] 45 mg/dL *HI* (09/22/24 10:31 AM) Hyaline Casts (u) 1-4 *Unknown* (09/22/24 10:31 AM) Squamous Epithelial Cells (u) FEW *Unknown* (09/22/24 10:31 AM) Mucous (u) FEW *Unknown* (09/22/24 10:31 AM) Bact (u) [NONE-NONE] FEW *Abnormal* (09/22/24 10:31 AM) Bili (u) [NEG] NEGATIVE *Unknown* (09/22/24 10: AM) PTH Intact [15.0-65.0 pg/mL] 249.1 pg/mL *HI* (09/22/24 10:30 AM) Ketones [NEG mg/dL] NEGATIVE mg/dL (09/22/24 10:31 AM) Leuk Est [NEG] NEGATIVE *Unknown* (09/22/24 10:31 AM) Nitrite (u) [NEG] NEGATIVE *Unknown* (09/22/24 10: AM) Appear (u) CLEAR *Unknown* (09/22/24 10: AM) Color (u) YELLOW *Unknown* (09/22/24 10: AM) Creat (u) 164.65 mg/dL 1 (09/22/24 10:31 AM) Glu (u) [NEG mg/dL] NEGATIVE mg/dL (09/22/24 10:31 AM) Hgb (u) [NEG] NEGATIVE *Unknown* (09/22/24 10:31 AM) pH (u) [5.0-8.0 unit] 6.0 unit (09/22/24 10:31 AM) Prot (u) [NEG mg/dL] 100 mg/dL *Abnormal* (09/22/24 10:31 AM) RBC (u) [0-4 /HPF] 0-4 /HPF (09/22/24 10:31 AM) Urobili [0.1-1.0 EU/dL] 0.1-1.0 EU/dL (09/22/24 10:31 AM) SG [1.005-1.030] 1.017 (09/22/24 10:31 AM) WBC (u) [0-4 /HPF] 5-9 /HPF (09/22/24 10:31 AM) 1Result Comment: Reference Range for Random Urine Not Established. Social History Social History Type Response Smoking Status Never smoked cigaret ryan Sex Male Sex Representation Male (finding) Patient Care team information Care Team Personnel Name: DAYLIN Vega Michelle Position: RN - Outpt Schedule III Member Role: Lifetime - never expires Name: DAYLIN Jasmine, Jenn Bran Position: RN - Outpatient Member Role: Lifetime - never expires Address: [facility] [address] [place] [address] Name: MD Darryl, Vicky Pisano Position: Referring Member Role: Primary Care Provider Address: [facility] [address] [place] [address] [place] Name: MARIANELA Cullen Bridget M Position: Physician Senior It Security Analyst - Vascular Surg Member Role: Lifetime - never expires Address: [address] [place] [address] [address] Name: DAYLIN Key Sally Position: RN Member Role: Lifetime - never expires Address: [facility] [address] [place] [address] Name: DAYLNI Garza, Drea Andrade Position: RN - Outpatient Member Role: Lifetime - never expires Address: [facility] [address] [place] [address] Name: DAYLIN Verde, Julissa Position: RN - Perioperative Member Role: Lifetime - never expires Name: Nubia Kelly Tracy M Position: Pharmacist Member Role: Pharmacy - Lifetime Address: [facility] [address] Care Team Related Persons Name: RODRIGUEZ DUNNE Name: JAY DUNNE
--- OUTSIDE RECORDS SUMMARY | 2024-10-06 21:12 | External Medical Summary | Continuity of Care Document ---
Author Name Unknown Organization [facility] [address] [place] [address] [address] [id number] Care Team Providers Care Stave Block Roller Name Role Phone Vicky Andrews Primary Care Physician [phone] Encounter [facility] [id number] Date(s): 09/24/24 - 09/24/24 [facility] [address] [facility] [address], [address], [address] [place] [address] [phone] Encounter Diagnosis Kidney stone on left side(Discharge Diagnosis) - 09/24/24 CKD (chronic kidney disease)(Discharge Diagnosis) - 09/24/24 Discharge Disposition: Home or Self Care Attending Physician: MD Hdez Joseph Y Referring Physician: MD Alejo Ronald P Allergies, [...] qhs, Disp# 14 supp, Refills: 1, Pharmacy: [facility] #[id number] Start Date: 06/04/23 Stop Date: 07/02/23 Status: [...] PM, Note to Pharmacy: Brooke Z79.899, Pharmacy: [facility] Start Date: 05/07/23 Status: Ordered ferrous sulfate [...] Start Date: 06/02/24 Status: Ordered Mental Status 09/24/24 Barriers to Learning one year Vision imp airment, Other: wears glasses Mandatory Health Literacy Documentation Yes Health Literacy Communication Barriers N ever Primary Language Guyanese Problem List Condition Confirmation Course Effective Dates [...] Diagnosis Diagnosis Type Effective Dates Health Status Cl inical Service Informant Kidney stone on left side Discharge Diagnosis 09/24/24 CKD (chronic kidney disease) Discharge Diagnosis 09/24/24 Procedures Procedure Date Related Diagnosis Body Site [...] 1of pouch Results Laboratory List Name Date Specimen Type (SPECIMEN TYPE) 09/24/24 Urine Container on Hold in Laboratory (E XTRA URINE) 09/24/24 Most recent to oldest [Reference Range]: 1 Urine Container Specimen available f rom 0 to 3 days based on specimen stability. Please use addon order if you wish to order testing. *Unknown* (09/24/24 4:10 PM) BF Source Urine in TIGER top t ube good for UA only *Unknown* (09/24/24 4:10 PM) Orders for Microbiology Reports Name Date Urine Culture (CULTURE, URINE) 09/24/24 Microbiology Reports TEST:Urine.Cx STATUS:Auth (Verified) BODY SITE: SOURCE:Urine COLLECTED DATE/TIME:09/24/24 4:10 PM Status FINAL 09/26/2024 ORGANISM:Escherichia coli Susceptibilty: Escherichia coli Tested Drug Broth THANG Dilution Broth Interpr etation Trimeth-Sulfamethoxazole <=0.5/9.5 Suscept . Tetracycline <=4 Suscept. Nitrofurantoin <=32 Suscept. Levofloxacin <=0.5 Suscept. Gentamicin <=2 Suscept. Ciprofloxacin <=0.25 Suscept. Cefazolin <=2 Suscept. Ampicillin <=8 Suscept. Vital Signs Most recent to oldest [Reference Range]: 1 Height 179 cm (09/24/24 2:19 PM) Patient Weight 103.8 kg (09/24/24 2:19 PM) Body Mass Index 32.4 kg/m2 (09/24/24 2:19 PM) Temperature [36.5-37.9 DegC] 36.8 DegC (09/24/24 2:19 PM) Heart Rate 75 bpm (09/24/24 2:19 PM) Blood Pressure 121/60mmHg (09/24/24 2:19 PM) Cuff Pulse Pressure 61 mmHg (09/24/24 2:19 PM) BP Location # 1 Left Arm (09/24/24 2:19 PM) Social History Social History Type Response Smoking Status Never smoked cigaret ryan Sex Male Sex Representation Male (finding) Patient Care team information Care Team Personnel Name: DAYLIN Vega Michelle Position: RN - Outpt Schedule III Member Role: Lifetime - never expires Name: DAYLIN Jasmine Colleen E Position: RN - Outpatient Member Role: Lifetime - never expires Address: [facility] [address] [place] [address] Name: MD Darryl, Vicky C Position: Referring Member Role: Primary Care Provider Address: [facility] [address] [place] [address] [place] Name: MARIANELA Cullen Bridget M Position: Physician Window Trimmer Apprentice - Vascular Surg Member Role: Lifetime - never expires Address: [address] [place] [address] [address] [place] [address] Name: DAYLIN Key Sally Position: RN Member Role: Lifetime - never expires Address: [facility] [address] [place] [address] [place] Name: DAYLIN Garza, Drea Andrade Position: RN - Outpatient Member Role: Lifetime - never expires Address: [facility] [address] [place] [address] Name: DAYLIN Verde, Julissa Position: RN - Perioperative Member Role: Lifetime - never expires Name: Nubia Kelly Tracy M Position: Pharmacist Member Role: Pharmacy - Lifetime Address: [facility] [address] [place] [address] [place] Care Team Related Persons Name: RODRIGUEZ DUNNE Name: JAY DUNNE
[2024-10-07 06:08] LABS: Eosinophils # (auto) 0.01 K/uL (0.00-0.50); Eosinophils % (auto) 0.5 %; Hematocrit (blood only) 24.6 % (42.0-52.0); Hemoglobin 7.9 g/dl (14.0-18.0); Immature Granulocytes # (auto) 0.01 K/uL (0.01-0.20); Immature Granulocytes % (auto) 0.5 %; Lymphocytes % (auto) 23.9 %; Mean Corpuscular Hemoglobin 27.7 pg (25.0-34.0); Mean Corpuscular Hgb Conc 32.1 g/dL (32.0-36.0); Mean Corpuscular Volume 86.3 fL (80.0-100.0); Mean Platelet Volume 12.9 fL (9.4-12.4); Monocytes # (auto) 0.27 K/uL (0.11-0.59); Monocytes % (auto) 12.9 %; Neutrophils % (auto) 62.2 %; Platelet Count 54 K/uL (130-400); RDW Coefficient of Variation 13.8 % (11.5-14.5); RDW Standard Deviation 43.6 fL (36.4-46.3); Red Blood Count 2.85 M/uL (4.70-6.10); White Blood Count 2.09 K/ul (4.8-10.8)
--- NOTE | 2024-10-07 06:23 | Communication Note ---
Date of Service: October 07, 2024 Patient with headache symptoms not responsive to Tylenol as per RN. AP Headache Thrombocytopenia CT head Hold aspirin for now
[2024-10-07 06:27] LABS: Albumin Globulin Ratio 1.1 (0.9-2); BUN Creatinine Ratio 19.4 (10-20); Bilirubin,Total 0.4 mg/dl (0.2-1.0); Calcium 7.3 mg/dl (8.6-10.3); Creatinine Clr Calc Pharmacy 18.5 ml/min; Globulin 2.8 gm/dl (2.5-4.0); Magnesium 1.3 mg/dl (1.7-2.4); Potassium 4.3 mmol/L (3.5-5.1); Total Protein 5.8 gm/dl (6.0-8.3)
[2024-10-07] MEDS: oxyCODONE HCL IR 5 MG TAB (IMMEDIATE RELEASE) PO PRN (06:35)
[2024-10-07] MEDS: LEVOTHYROXINE SODIUM 175 MCG TABLET PO SCH (06:41)
[2024-10-07 06:45] LABS: Echinocytes 1+; Tear Drop Cells 1+
--- NOTE | 2024-10-07 07:52 | CT Scan Report ---
EXAM: CT head/brain wo con CLINICAL HISTORY: john, thrombocytopenia TECHNIQUE: Axial non-contrast CT scan of the brain was performed from the skull base to the high parietal region. One of the following dose reduction techniques were utilized for this exam: Automated exposure control, adjustment of the mA and/or kV according to patient size, use of iterative reconstruction. CTDI: 38.76 mGy, DLP: 625.80 mGycm COMPARISON: None. FINDINGS: Brain Parenchyma: Ill defined hypodensities in white matter of bilateral frontal lobes likely small vessel ischemia. Normal attenuation of rest of cerebral hemispheres, cerebellum, and brainstem. No evidence of acute infarct. Ventricular System: Ventricles are normal in size and configuration. No evidence of hydrocephalus or ventricular enlargement. Subtle hyper density along temporal horns of bilateral lateral ventricles likely calcifications. Subarachnoid Spaces: Prominent sulci and cisterns. Mild extra-axial hemorrhage along right frontal convexity likely subarachnoid hemorrhage. Cerebellum and Brainstem: Normal size and attenuation. Orbits: Normal appearance of the globes, optic nerves, and extraocular muscles. Sinuses: Air fluid levels in the right maxillary sinus. Rest clear paranasal sinuses. Mastoid Air Cells: Clear mastoid air cells. No evidence of mastoiditis. Skull and Meninges: Normal skull morphology. IMPRESSION: 1. Ill-defined hypodensities in the white matter of bilateral frontal lobes likely small vessel ischemia. 2. Mild extra-axial hemorrhage along right frontal convexity likely subarachnoid hemorrhage. Electronically signed by Evelyn Stephen 10-07-2024 07:52 AM
[2024-10-07] MEDS ORDERED: ASPIRIN 81 MG ECTAB PO SCH (09:00)
--- NOTE | 2024-10-07 09:33 | Urology Consultation ---
Date of Consultation October 07, 2024 Assessment & Plan (1) Hydronephrosis: (2) Acute kidney injury: Plan Left Hydronephrosis; ARELIS - Creatinine 4.95 today - Renal ultrasound showing left-sided marked hydronephrosis - Patient reports a known large 1cm obstructing left stone. Per his report, he had consultation with urologist in [place] who felt the L kidney was functioning poorly overall and did not feel removing stone would provide benefit - Will check a CT abd pelvis wo con. May need to consider Nuc Med Renal Scan to assess overall function of left kidney? - Keep NPO for now. - Urology will follow along. History of Present Illness Attending Physician: Jeremy Schafer DO Allergies Allergy/AdvReac Type Severity Reaction Status Date / Time denosumab [From Prolia] Allergy Severe liver Verified 09/25/23 08:16 failure Sulfa (Sulfonamide Allergy Intermediate Rash Verified 09/25/23 08:16 Antibiotics) Home Medications Medication Instructions Recorded Confirmed Type aspirin 81 mg tablet,delayed 81 mg PO DAILY 06/03/20 10/06/24 History release ferrous sulfate 325 mg (65 mg 325 mg PO DAILY 06/03/20 10/06/24 History iron) tablet,delayed release metoprolol tartrate 25 mg tablet 25 mg PO BID 06/03/20 10/06/24 History mycophenolate mofetil 500 mg tablet 1,000 mg PO QAM 06/03/20 10/06/24 History mycophenolate mofetil 500 mg 500 mg PO HS 06/03/20 10/06/24 History tablet (CellCept) omeprazole 20 mg capsule,delayed 20 mg PO DAILY 06/03/20 10/06/24 History release tacrolimus 1 mg capsule, 1 mg PO Q12H 06/03/20 10/06/24 History immediate-release levothyroxine 150 mcg tablet 175 mcg PO QAM 07/23/22 10/06/24 History lisinopril 5 mg tablet 5 mg PO DAILY 09/25/23 10/06/24 History Patient History Medical History (Updated 10/07/24 @ 16:51 by Jeremy Schafer DO) Obesity CKD (chronic kidney disease) stage III Liver transplant recipient 1997, 2012 Pancreatitis hx ~15 years ago/no issues since liver transplant Esophageal varices hx/resolved since liver transplant GERD (gastroesophageal reflux disease) Hypertension Surgical History (Updated 10/06/24 @ 19:20 by Blaise Means MD) History of colon surgery J-Pouch surgery History of lithotripsy History of cholecystectomy with liver surgery History of colonoscopy History of esophagogastroduodenoscopy (EGD) History of colostomy reversal History of colostomy Family History Father Heart disease Cancer Other No family history of adverse response to anesthesia Social History Smoking Status: Never smoker Second Hand Exposure: No; Do You Dip or Chew Tobacco: No; Hx Alcohol Use: No Hx Substance Use: No Preferred Language: Algerian Communication Ability: Effective Visual Impairment: No Limitations Hearing Ability: Normal Crimp Setter Required: No Beliefs That Will Affect Care: Mandaen marital status: Current Living Situation: Spouse current occupational status: employed 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 Feels Safe at Home: Yes Diet: regular Assistive Devices: None Results & Data Vital Signs (Past 12 Hours) Vital Signs Temp Pulse Pulse Resp BP BP Pulse Ox 10/07/24 08:04 36.4 C L 76 18 93/56 L 100 10/07/24 02:53 36.8 C 77 20 93/57 L 100 10/06/24 22:55 37 C 81 18 100/60 100 10/06/24 22:45 85 10/06/24 21:50 37 C 95 H 20 108/65 100 O2 Del Method 10/07/24 08:04 Room Air 10/07/24 02:53 Room Air 10/06/24 22:55 Room Air 10/06/24 22:45 10/06/24 21:50 Room Air PG Care Time/CCT Total # of Minutes Spent Total Time Spent with Patient: Total time spent is greater than 50% in coordination of care (as documented) at patient's floor/unit and/or counseling patient: Coding Diagnoses Hydronephrosis N13.30 Acute kidney injury N17.9
[2024-10-07] MEDS: MAGNESIUM SULFATE / D5W 1 GM/100 ML BAG IV ONE (10:30)
[2024-10-07] MEDS: MYCOPHENOLATE MOFETIL 250 MG CAP PO SCH (10:31)
[2024-10-07] MEDS: FERROUS SULFATE 325 MG TAB PO SCH (10:31)
[2024-10-07] MEDS: MAGNESIUM OXIDE 400 MG TAB PO SCH (10:31)
[2024-10-07] MEDS: PANTOprazole 40 MG TAB PO SCH (10:31)
[2024-10-07] MEDS ORDERED: SODIUM CHLORIDE 0.9% 50 ML IV PRN (10:51)
[2024-10-07] MEDS ORDERED: SODIUM CHLORIDE 0.9% 100 ML IV PRN (10:51)
--- NOTE | 2024-10-07 11:14 | Nephrology Progress Note ---
Date of Service October 07, 2024 Assessment & Plan Admission and Anticipated Discharge Date Admission Date: October 06, 2024 Subjective Assessment & Plan (1) Acute worsening of stage 3 chronic kidney disease: Found to have ARELIS with creat of 5.1 and na 123. getting NS. Also tested for Covid. getting Iv vanco and Iv Zosyn also His last outpt labs from 08/21/2024 ---creat 2.4 k 5.4 and dropping Na of 130. Must be noted that for last 6 months Creat has been rising, K has been rising and na has been dropping. There has been Worsened left kidney status--maybe was functional before but is now non functional totally with severe Hydronephrosis. urology Note reviewed from today. Unlikely the left kidney is salvageable. There is no rt Hydronephrosis. For now given clinical Situation and Low BP will assume he is volume depleted and continue iv fluid. However Creat did not change much so this is not a simple pre renal type. Given NPO status can continue ivf for one more day. Hold Lisinopril. No NSAIDS. No nephrotoxic agents. Also given creat of 5 and cannot rule out the potential need of Dialysis also. but creat not rising daily so wont need right away but may need in near future. I wont be surprised if this is his new baseline creat (2) Acute hyponatremia: Chek urine na and urine creat and urine Osm. Na not improving much. COvid and ARELIS can cause this also. Check labs every 8hrs (3) SARS-CoV-2 positive: (4) Status post liver transplant: At home On Prograf and MMF. Currently patient is Pancytopenic with anaplasmosis so would strongly recommend to stop MMF. Would consider doing some steroid and restart low dose prograf. Unfortunately FK level will take many days to come back in this hospital. He also has Sub arachnoid bleed with Low PLT and Dropping so this is becoming a big issue now. My concern about the transplant meds was relayed to Hospitalist who will be talking with liver transplant dept. Case complexity high. Time spent 50 mins S--patient feels weak. had headache which then led to CT head. had SAH--new. more pancytopenic now. renal function not much better. Currently NPO. but he is hungry. No SOB. Physical Exam Physical Exam: Constitutional: Awake and alert. at bedside. Mm--moist. neck Supple. No JVD. Respiratory: lungs clear to auscultation, no wheeze, rales, rhonchi. Normal insp/exp effort Cardiovascular: RRR, no murmur, no edema Abdomen: soft, + multiple surgeries, nontender, Skin: no rashes, warm and dry normal turgor Neurologic: PERRL, EOMI, accommodation nl, no face palsy, no dysarthria CN's II-XI intact bilaterally and moves all extremities Psychiatric: A+Ox3, euthymic affect Results & Data Vital Signs (Past 12 Hours) Vital Signs Temp Pulse Pulse Resp BP Pulse Ox O2 Del Method 10/07/24 10:00 74 10/07/24 08:04 36.4 C L 76 18 93/56 L 100 Room Air 10/07/24 02:53 36.8 C 77 20 93/57 L 100 Room Air
[2024-10-07 12:23] LABS: Calcium 7.6 mg/dl (8.6-10.3)
--- NOTE | 2024-10-07 12:24 | CT Scan Report ---
ABDOMEN AND PELVIS CT WITHOUT CONTRAST CT DOSE: 1523.17 mGy.cm HISTORY: Acute kidney injury Prior hepatic transplant with choledochoduodenostomy. Postoperative vargas ges of prior subtotal colectomy left hydro, ARELIS TECHNIQUE: Multiaxial CT images of the abdomen and pelvis were performed without contrast. A dose lo wering technique was utilized adhering to the principles of ALARA. COMPARISON STUDY: Renal ultrasound 10/06/2024, CT 06/01/2020 FINDINGS: Pronounced gynecomastia. Cardiomegaly with decreased attenuation of the cardiac blood pool suggestive of anemia. Moderate coronary artery calcifications. Trace pleural effusions with mild biba silar atelectasis versus scarring. 10 mm ovoid nodular focus in the medial basal segment left lower l obe on image 57 series 3, previously 7 mm. No pneumoperitoneum identified. Prior hepatic transplant with choledochoduodenostomy. Pneumobilia again noted. Surgically absent gall bladder. No hepatic mass identified. Unremarkable unenhanced spleen, pancreas and adrenal glands. Cor tical thinning of the kidneys, left greater than right. There are a few renal cysts redemonstrated. S evere left-sided hydroureteronephrosis with abrupt narrowing of the ureter at the level of L4. No obs tructing stone or lesion identified on this exam. Partially decompressed urinary bladder. No renal or ureteral calculi identified. Atherosclerosis of the aorta without aneurysm. Changes of prior subtotal colectomy . Upper abdominal varicosities are again noted. There is no aneta l obstruction or bowel wall thickening identified. Fluid-filled loops of bowel are seen. Nonspecific mesenteric lymphadenopathy with lymph nodes measuring up to 11 mm on image 179, similar to prior. Fat filled right lateral abdominal wall hernia on image 22 series 3. No acute fracture. IMPRESSION: 1. Severe left-sided hydroureteronephrosis with cortical thinning. There is abrupt luminal narrowing of the ureter at the level of L4 without obstructing stone or lesion identified. Differential conside rations include a ureteral stricture versus occult urothelial lesion. 2. No urolith. 3. Prior hepatic transplant with choledochoduodenostomy. Postoperative changes of prior subtotal madeleine ctomy. 4. Incidental findings as above. ACT 112: Negative or not required by law. The above report was generated using voice recognition software. It may contain grammatical, syntax o r spelling errors. Electronically signed by: Jared Mcdaniel M.D. 10/07/2024 12:21 PM
[2024-10-07 12:41] LABS: Anaplasmosis Smear(Rpt to DOH) Pos for Anaplasma
[2024-10-07 12:51] LABS: BUN Creatinine Ratio 16.7 (10-20)
--- NOTE | 2024-10-07 15:34 | Nuclear Medicine Report ---
NM renal scan and flow MAG 3 HISTORY: 59 years-old Male evaluate differential renal function COMPARISON: CT abdomen and pelvis 10/07/2024 TECHNIQUE: MAG3 renal scan was obtained following the intravenous ministration of 8.6 mCi technetium 99 Mertiatide administered via the right upper extremity. FINDINGS: Split renal function is 19.3% on the left and 80.7% on the right. Normal flow and excretion of contra st from the right kidney. There is diminished flow on the left without significant excretion of trace r, therefore there is no scintigraphic evidence of hydronephrosis on this exam secondary to the decre ased function. Images were obtained through 30 minutes. IMPRESSION: 1. Split renal function of 19.3% on the left and 80.7 on the right. 2. Diminished flow and excretion of contrast from the left kidney. ACT 112: Negative or not required by law. The above report was generated using voice recognition software. It may contain grammatical, syntax o r spelling errors. Electronically signed by: Jared Mcdaniel M.D. 10/07/2024 3:31 PM
--- NOTE | 2024-10-07 16:14 | Hospitalist Progress Note ---
Date of Service October 07, 2024 Assessment & Plan (1) Severe sepsis: (2) Anaplasmosis: (3) COVID-19 virus infection: (4) Subarachnoid hemorrhage: (5) Hypomagnesemia: (6) Pancytopenia: (7) Acute renal failure superimposed on stage 3 chronic kidney disease: (8) Acute hyponatremia: (9) Hydronephrosis of left kidney: (10) Liver transplant recipient: Plan Patient presents with severe sepsis is evidenced by pancytopenia from anaplasmosis infection. Patient [place] and [place] often and so he does carry risk factors. Patient also test positive for COVID-19 infection, did have symptoms of fever prior to admission, currently asymptomatic, not requiring oxygen therapy, does not meet criteria for COVID directed therapy at this time, continue to monitor Patient with headache, most likely due to findings of subarachnoid hemorrhage on CT of the head. This is most likely caused by his vomiting episodes he had prior to admission in the setting of severe thrombocytopenia. Communication with neurosurgery Dr. Lund at [facility]. He was able to review the films and provide phone consultation. He recommended platelet transfusion to attempt to get platelets above 75 and monitor for worsening neurological symptoms. Reviewed neurosurgery recommendations with patient, agreeable and consented to platelet transfusion Communication with patient's liver transplant team at [facility], updated Carol his audio visual coordinator. She is aware that he has anaplasmosis. Updated her on his most recent labs. Also made her aware that we do not have the capabilities due to frequent tacrolimus levels. We may get a result in 5 to 7 days. Asked her about discontinuing the CellCept and considering possible steroids in the setting of his pancytopenia. She was going to forward information to Dr. Hill his transplant physician. Awaiting callback from them for any further recommendations. In the meantime, continue doxycycline for anaplasmosis Will hold Prograf and CellCept. Will hold on any steroids at this time Communication with nephrology, renal function has not improved, has not worsened. No indication for immediate hemodialysis we will continue to monitor laboratory studies. Anticipate pancytopenia and hyponatremia improving as infection improves Communication with urological team in the setting of severe left hydronephrosis and renal failure. Previously had been determined that there was minimal function of the left kidney and that intervention risks would outweigh benefits. Renal scan ordered. Results are as noted above Continue other supportive measures Replace magnesium 68 minutes spent in reviewing record, interpreting data, communication with consultants, evaluation the patient, communication with medical team, repeat evaluation the patient at bedside Admission and Anticipated Discharge Date Admission Date: October 06, 2024 Subjective Patient denies any chest pain or shortness of breath. Complaining of headache throughout the night. Denies any paresthesias, denies any poor coordination or unilateral weakness. Physical Exam Physical Exam: Constitutional: Alert, nontoxic, no acute distress HEENT: Mucous membranes moist. Lungs: Clear to auscultation, decreased, no wheezes rales or rhonchi CV: S1-S2, regular Abdomen: Soft, nontender, nondistended Extremities: No significant edema Neuro: No focal deficits Psych: Cooperative, normal mood Results & Data Results & Data Vital Signs (Past 12 Hours) Vital Signs Temp Pulse Pulse Resp BP Pulse Ox O2 Del Method 10/07/24 11:12 36.4 C L 84 18 107/66 100 Room Air 10/07/24 10:00 74 10/07/24 08:04 36.4 C L 76 18 93/56 L 100 Room Air Diagnostic Findings Reviewed imaging, laboratory and diagnostic studies. Pertinent findings as below. WBCs 2.0 Hemoglobin 7.9 Platelets 54, decreasing Sodium 125 Potassium 4.0 Carbon oxide 11 Creatinine 5.[address] showed significant small vessel ischemia, also showed small subarachnoid hemorrhage Renal scan shows split renal function with approximately 19% functional left and 80% on the right CT of the abdomen pelvis showed severe left-sided hydronephrosis with cortical thinning with significant narrowing of the ureter at the level of L4.
--- NOTE | 2024-10-07 17:00 | Urology Consultation ---
Date of Consultation October 07, 2024 Assessment & Plan (1) Hydronephrosis of left kidney: (2) Acute renal failure superimposed on stage 3 chronic kidney disease: Plan 59-year-old male with a history of multiple medical comorbidities including history of a liver transplant and CKD. He was recently admitted here due to worsening labs showing a creatinine rise from 2.4 up to slightly over 5. Values 5.09 today. He also has hyponatremia. Renal ultrasound showed left hydron ephrosis but no right hydronephrosis. I had a long discussion with the patient. I discussed that I think he likely has a left proximal ureteral stricture causing obstruction and permanent damage to that kidney. That being said, his nuclear medicine scan does show 19% function. Typically, if the kidney has greater than 15% function it is not unreasonable to intervene on the obstruction to improve his renal function That being said, there is no promise that a left ureteral stent would markedly improve his labs. It may slightly improve his renal function but I doubt it would bring his values back down to his previous baseline of 2.4. The stent will need to be exchanged every 3 months and I am not sure it would be indicated for him to have a reconstructive surgery to address that stricture even if his renal function did slightly improve. As patient is not appropriately n.p.o. and he is relatively stable, no intervention for tonight Recommend making patient n.p.o. at midnight Asked that he and his think about a stent and we can reevaluate this tomorrow morning based on his labs and his desires. Explained that there is no clear-cut answer for him and I suspect his ARELIS is largely medical in nature. Appreciate nephrology's recommendations Urology to follow History of Present Illness Attending Physician: Jeremy Schafer, History of Present Illness 59-year-old male with a history of multiple medical comorbidities including history of a liver transplant and CKD. He was recently admitted here due to worsening labs showing a creatinine rise from 2.4 up to slightly over 5. Values 5.09 today. He also has hyponatremia. Nephrology was consulted here and got an ultrasound which showed left hydronephrosis and a normal right kidney. On review of notes and speak with the patient, he has had known left hydr onephrosis and was seen by nephrology at [facility] as well as Dr. Omar Hdez of [facility]. They felt that the left kidney was largely nonfunctional and recommended no further intervention. We recommended a CT scan which I independently reviewed and shows no obstructing stone but he likely has a left proximal ureteral stricture as there is a transition point in that area where his previous stone was. There is a small amount of parenchymal left on the kidney so we opted to get a nuclear medicine scan which shows 81% function on the right and 19% function on the left. Patient recently ate food 1 hour ago. Allergies Allergy/AdvReac Type Severity Reaction Status Date / Time denosumab [From Prolia] Allergy Severe liver Verified 09/25/23 08:16 failure Sulfa (Sulfonamide Allergy Intermediate Rash Verified 09/25/23 08:16 Antibiotics) Home Medications Medication Instructions Recorded Confirmed Type aspirin 81 mg tablet,delayed 81 mg PO DAILY 06/03/20 10/06/24 History release ferrous sulfate 325 mg (65 mg 325 mg PO DAILY 06/03/20 10/06/24 History iron) tablet,delayed release metoprolol tartrate 25 mg tablet 25 mg PO BID 06/03/20 10/06/24 History mycophenolate mofetil 500 mg tablet 1,000 mg PO QAM 06/03/20 10/06/24 History mycophenolate mofetil 500 mg 500 mg PO HS 06/03/20 10/06/24 History tablet (CellCept) omeprazole 20 mg capsule,delayed 20 mg PO DAILY 06/03/20 10/06/24 History release tacrolimus 1 mg capsule, 1 mg PO Q12H 06/03/20 10/06/24 History immediate-release levothyroxine 150 mcg tablet 175 mcg PO QAM 07/23/22 10/06/24 History lisinopril 5 mg tablet 5 mg PO DAILY 09/25/23 10/06/24 History Patient History Medical History (Updated 10/07/24 @ 16:51 by Jeremy Schafer DO) Obesity CKD (chronic kidney disease) stage III Liver transplant recipient 1997, 2012 Pancreatitis hx ~15 years ago/no issues since liver transplant Esophageal varices hx/resolved since liver transplant GERD (gastroesophageal reflux disease) Hypertension Surgical History (Updated 10/06/24 @ 19:20 by Blaise Means MD) History of colon surgery J-Pouch surgery History of lithotripsy History of cholecystectomy with liver surgery History of colonoscopy History of esophagogastroduodenoscopy (EGD) History of colostomy reversal History of colostomy Family History Father Heart disease Cancer Other No family history of adverse response to anesthesia Social History Smoking Status: Never smoker Second Hand Exposure: No; Do You Dip or Chew Tobacco: No; Hx Alcohol Use: No Hx Substance Use: No Preferred Language: German Communication Ability: Effective Visual Impairment: No Limitations Hearing Ability: Normal Per Assessment Nurse Required: No Beliefs That Will Affect Care: Lutheran marital status: Current Living Situation: Spouse current occupational status: employed 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 [employer] Feels Safe at Home: Yes Diet: regular Assistive Devices: None Physical Exam Physical Exam: General: Alert and oriented, no acute distress HEENT: Normocephalic, mucous membranes moist Pulmonary: Nonlabored respirations Abdomen: Nondistended Extremities: Moves all 4 spontaneously Neuro: No gross deficits Skin: Warm, dry, no rashes noted Results & Data Vital Signs (Past 12 Hours) Vital Signs Temp Pulse Pulse Resp BP BP Pulse Ox 10/07/24 16:50 36.4 C 90 114/71 100 10/07/24 16:27 36.6 C 85 20 112/73 100 10/07/24 11:12 36.4 C L 84 18 107/66 100 10/07/24 10:00 74 10/07/24 08:04 36.4 C L 76 18 93/56 L 100 O2 Del Method 10/07/24 16:50 10/07/24 16:27 Room Air 10/07/24 11:12 Room Air 10/07/24 10:00 10/07/24 08:04 Room Air PG Care Time/CCT Total # of Minutes Spent Total Time Spent with Patient: Total time spent is greater than 50% in coordination of care (as documented) at patient's floor/unit and/or counseling patient: Coding Level of Care Code 15518 IN/OBS CONSULT LVL 3,45M Diagnoses Hydronephrosis of left kidney N13.30 Acute renal failure superimposed on stage 3 chronic kidney disease N17.9; N18.30
[2024-10-07] MEDS: predniSONE 5 MG TAB PO SCH (19:00)
[2024-10-07] MEDS: TACROLIMUS 0.5 MG CAP PO SCH (20:26)
[2024-10-08] MEDS: CALCIUM CARBONATE 500 MG CHEWABLE TAB PO STA (01:08)
[2024-10-08 08:02] LABS: Hematocrit (blood only) 25.4 % (42.0-52.0); Hemoglobin 8.3 g/dl (14.0-18.0); Mean Corpuscular Hemoglobin 27.8 pg (25.0-34.0); Mean Corpuscular Hgb Conc 32.7 g/dL (32.0-36.0); Mean Corpuscular Volume 84.9 fL (80.0-100.0); Mean Platelet Volume 12.2 fL (9.4-12.4); Platelet Count 86 K/uL (130-400); RDW Coefficient of Variation 14.4 % (11.5-14.5); RDW Standard Deviation 44.5 fL (36.4-46.3); Red Blood Count 2.99 M/uL (4.70-6.10); White Blood Count 3.79 K/ul (4.8-10.8)
[2024-10-08 08:22] LABS: BUN Creatinine Ratio 19.6 (10-20); Calcium 7.5 mg/dl (8.6-10.3); Creatinine Clr Calc Pharmacy 21.6 ml/min; Magnesium 1.6 mg/dl (1.7-2.4); Phosphorus 4.6 mg/dl (2.5-4.9); Potassium 4.3 mmol/L (3.5-5.1)
[2024-10-08 09:10] LABS: Acanthocytes 1+; Echinocytes 1+; Eosinophils # (auto) 0.02 K/uL (0.00-0.50); Eosinophils % (auto) 0.5 %; Immature Granulocytes # (auto) 0.02 K/uL (0.01-0.20); Immature Granulocytes % (auto) 0.5 %; Lymphocytes # (auto) 0.52 K/uL (1.20-3.40); Lymphocytes % (auto) 13.7 %; Monocytes # (auto) 0.55 K/uL (0.11-0.59); Monocytes % (auto) 14.5 %; Neutrophils # (auto) 2.68 K/uL (1.40-6.50); Neutrophils % (auto) 70.8 %; Polychromasia 1+; Tear Drop Cells 1+
[2024-10-08] MEDS: MAGNESIUM SULFATE / D5W 1 GM/100 ML BAG IV SCH (09:35)
--- NOTE | 2024-10-08 09:42 | CT Scan Report ---
EXAM: CT head/brain wo con CLINICAL HISTORY: subarachnoid bleed TECHNIQUE: Axial non-contrast CT scan of the brain was performed from the skull base to the high parietal region. One of the following dose reduction techniques was utilized for this exam: Automated exposure control, adjustment of the mA and/or kV according to patient size, and use of iterative reconstruction. COMPARISON: CT 10/07/2024 FINDINGS: Brain Parenchyma: Redemonstration of the focal ill-defined hypodense area in the floor of the right frontal loop with focal 5 mm hyperdensity of likely cortical contusion. with stable adjacent mild extra-axial hyperdensity along right frontal convexity likely subarachnoid hemorrhage measuring 13 mm in length and 2 mm thickness. There are tiny ill-defined hypodense areas noted in the subcortical white matter and the periventricular region bilaterally, suggestive of mild-moderate microvascular ischemic changes. Ventricular System: Ventricles are normal in size and configuration. Hyperdensity along temporal horns of bilateral lateral ventricles likely choroid calcifications, normal variant. No evidence of hydrocephalus or ventricular enlargement. Subarachnoid Spaces: prominent sulci and cisterns. Redemonstration of the mild extra-axial hyperdensity along right frontal convexity is likely subarachnoid hemorrhage. Cerebellum and Brainstem: Normal size and signal. No masses, lesions, or areas of abnormal signal. Orbits: Normal appearance of the globes, optic nerves, and extraocular muscles. No evidence of orbital masses or abnormal signals. Mastoid Air Cells: Clear mastoid air cells. No evidence of mastoiditis. Skull and Meninges: Normal skull morphology. IMPRESSION: 1. Redemonstration of the focal ill-defined hypodense area in the floor of the right frontal loop with more obvious focal 5 mm area of hyperdensity likely cortical contusion, 2. Extra-axial right frontal convexity hyperdensity likely subarachnoid hemorrhage, minimal decrease in thickness and density since last study, 3. Further evaluation with MRI is suggested. Electronically signed by Evelyn Stephen 10-08-2024 08:13 AM
--- NOTE | 2024-10-08 10:20 | Nephrology Progress Note ---
Date of Service October 08, 2024 Assessment & Plan Admission and Anticipated Discharge Date Admission Date: October 06, 2024 Subjective Assessment & Plan (1) Acute worsening of stage 3 chronic kidney disease: Found to have ARELIS with creat of 5.1 and na 123. getting NS. Also tested for Covid. getting Iv vanco and Iv Zosyn also His last outpt labs from 08/21/2024 ---creat 2.4 k 5.4 and dropping Na of 130. Must be noted that for last 6 months Creat has been rising, K has been rising and na has been dropping. There has been Worsened left kidney status--maybe was functional before but is now non functional with severe Hydronephrosis. urology Note reviewed from today. Nuc med result from 10/07 reviewed showing about 19 % split function in left so maybe reasonable to do the ureteric stent in left. It is better to give benefit of doubt and do the procedure than not do . There is no rt Hydronephrosis. For now given clinical Situation and Low BP will assume he is volume depleted and continue iv fluid. Renal function did improve overnight. Hold Lisinopril. No NSAIDS. No nephrotoxic agents. Creat did come down a bit overnight so good sign. NS at 80 ml/hr restarted. (2) Acute hyponatremia: na much better at 130 today. This is encouraging. Continue gentle NS for tonight. (3) SARS-CoV-2 positive: (4) Status post liver transplant: At home On Prograf and MMF. After discussion with Transplant team at [facility]---prograf restarted. MMF stopped because of pancytopenia. Low dose steroid also given. Agree with this plan and will continue same. Does need daily LFT also given anaplasmsosis Currently patient is Pancytopenic but all 3 cell lines better today. He also has Sub arachnoid bleed with Low PLT and Dropping so this is becoming a big issue now. PLT better today S--All labs slightly better today. making urine. No new Symptoms. Physical Exam Physical Exam: Constitutional: Awake and alert. at bedside. Mm--moist. neck Supple. No JVD. Respiratory: lungs clear to auscultation, no wheeze, rales, rhonchi. Normal insp/exp effort Cardiovascular: RRR, no murmur, no edema Abdomen: soft, + multiple surgeries, nontender, Skin: no rashes, warm and dry normal turgor Neurologic: PERRL, EOMI, accommodation nl, no face palsy, no dysarthria CN's II-XI intact bilaterally and moves all extremities Psychiatric: A+Ox3, euthymic affect Results & Data Vital Signs (Past 12 Hours) Vital Signs Temp Pulse Pulse Resp BP Pulse Ox O2 Del Method 10/08/24 08:19 36.7 C 89 20 115/77 100 Room Air 10/08/24 05:19 36.8 C 88 14 109/70 99 Room Air 10/07/24 23:32 37 C 95 H 18 107/67 100 Room Air 10/07/24 22:17 79
[2024-10-08] MEDS: SODIUM CHLORIDE 0.9% 1,000 ML IV SCH (11:43)
--- NOTE | 2024-10-08 12:29 | Urology Progress Note ---
<Statement entered by Saul Maloney MD - 10/08/24 16:37> I have discussed Mr. Dykes' case with YEFRI Echevarria and agree with the above documentation. Unfortunately, he had breakfast and lunch today. We will hold off surgical intervention for now. He also inquired about the possibility of stent placement as an outpatient. There may be some value to deferring surgery until he is through his hospitalization and recovered from anaplasmosis and COVID. This may depend on the overall trend of his renal function. For now, we will make him n.p.o. at midnight and reassess on 10/09. -Saul Maloney MD. Date of Service October 08, 2024 Assessment & Plan (1) Hydronephrosis of left kidney: (2) Acute renal failure superimposed on stage 3 chronic kidney disease: Plan: 59-year-old male with a history of multiple medical comorbidities including history of a liver transplant and CKD. He was recently admitted here due to worsening labs showing a creatinine rise from 2.4 up to slightly over 5. Renal ultrasound showed left hydronephrosis but no right hydronephrosis. Patient is afebrile with stable vitals at present Labs today reviewedcreatinine is trending down (4.24 today), Na 130, no leukocytosis, hemoglobin 8.3 Subjectively doing well Suspected left proximal ureteral stricture causing obstruction and worsening renal function Nuclear medicine scan shows split renal function of 19.3% on the left and 80.7 on the right Placement of left ureteral stent previously reviewed and discussed with patient in detail with Dr. Still Patient is still considering left ureteral stent, he may want to pursue as an outpatient He is not currently NPO, so will hold off on intervention today since he is stable Will make NPO at NH to reassess tomorrow Gu will follow Admission and Anticipated Discharge Date Admission Date: October 06, 2024 Subjective Patient seen and examined at bedside. He is awake and eating lunch. Denies flank pain at present. No fever or chills. No nausea or vomiting. Review of Systems Constitutional: as per Subjective / HPI Genitourinary: + as per Subjective / HPI Physical Exam Constitutional: well developed and well nourished; no acute distress Respiratory: normal respiratory effort; no respiratory distress and no labored breathing Gastrointestinal (Abdomen): Inspection/Auscultation: abdomen normal to inspection Musculoskeletal: Head/Neck/Chest: normocephalic Neurologic: moves all extremities and awake Psychiatric: Orientation: alert and oriented x 3 Results & Data Vital Signs (Past 12 Hours) Vital Signs Temp Pulse Resp BP BP Pulse Ox O2 Del Method 10/08/24 12:15 36.6 C 89 20 113/69 100 Room Air 10/08/24 08:19 36.7 C 89 20 115/77 100 Room Air 10/08/24 05:19 36.8 C 88 14 109/70 99 Room Air PG Care Time/CCT Total # of Minutes Spent Total Time Spent with Patient: Total time spent is greater than 50% in coordination of care (as documented) at patient's floor/unit and/or counseling patient: Coding Level of Care Code 46609 SUB INP/OBS CARE 12/19MIN Diagnoses Hydronephrosis of left kidney N13.30 Acute renal failure superimposed on stage 3 chronic kidney disease N17.9; N18.30
--- NOTE | 2024-10-08 12:55 | Hospitalist Progress Note ---
Date of Service October 08, 2024 Assessment & Plan (1) Severe sepsis: (2) Anaplasmosis: (3) COVID-19 virus infection: (4) Subarachnoid hemorrhage: (5) Hypomagnesemia: (6) Pancytopenia: (7) Acute renal failure superimposed on stage 3 chronic kidney disease: (8) Acute hyponatremia: (9) Hydronephrosis of left kidney: (10) Liver transplant recipient: Plan Patient initially presented with severe sepsis as evidenced by organ dysfunction with pancytopenia due to anaplasmosis infection complicated by COVID infection. Patient is improving from infection standpoint, severe sepsis is resolved. Continue doxycycline for anaplasmosis, continue supportive care for COVID-19. Patient is not requiring any oxygen Continue to monitor blood counts Continue current dosing of Prograf and prednisone. Tacrolimus level still pending Reviewed urology recommendations, considering possible stenting of the right kidney, patient continuing to think about whether he wants that done here or outpatient Reviewed nephrology recommendations, some ongoing IV fluid resuscitation Monitor renal function Encourage activity as best as possible within his room Patient's headache has resolved, no additional head imaging planned, continue to hold antiplatelets/anticoagulation Replace magnesium If kidney function and blood counts continues to improve could potentially be transitioned to oral antibiotics and discharged within the next 48 hours. 53 minutes spent reviewing record, evaluation the patient, interpretation of laboratory studies and imaging studies Admission and Anticipated Discharge Date Admission Date: October 06, 2024 Subjective Patient denies any chest pain or shortness of breath. Overall feeling a bit better. Physical Exam Physical Exam: Constitutional: Alert, nontoxic HEENT: Mucous membranes moist. Lungs: Clear to auscultation, decreased, no wheezes rales or rhonchi CV: S1-S2, regular Abdomen: Soft, nontender, nondistended Extremities: No significant edema Neuro: No focal deficits Psych: Cooperative, normal mood Results & Data Results & Data Vital Signs (Past 12 Hours) Vital Signs Temp Pulse Resp BP BP Pulse Ox O2 Del Method 10/08/24 12:15 36.6 C 89 20 113/69 100 Room Air 10/08/24 08:19 36.7 C 89 20 115/77 100 Room Air 10/08/24 05:19 36.8 C 88 14 109/70 99 Room Air Diagnostic Findings Reviewed imaging, laboratory and diagnostic studies. Pertinent findings as below. WBCs 3.7 Hemoglobin 8.3 Platelets 86 Sodium 130 Creatinine 4.2 Magnesium 1.[address] report, subarachnoid stable/smaller
--- NOTE | 2024-10-08 16:13 | Electrocardiogram Report ---
Test Reason : Blood Pressure : */* mmHG Vent. Rate : 111 BPM Atrial Rate : 111 BPM P-R Int : 148 ms QRS Dur : 84 ms QT Int : 286 ms P-R-T Axes : 45 38 44 degrees QTcB Int : 388 ms Sinus tachycardia Nondiagnostic lateral Q waves Borderline ECG When compared with ECG of 07-Jun-2020 09:12, No significant change was found Confirmed by Renard Biggs ([id number]) on 10/08/2024 4:12:47 PM Referred By: Confirmed By: Renard Biggs
[2024-10-09 07:57] LABS: Basophils # (auto) 0.01 K/uL (0.00-0.20); Basophils % (auto) 0.3 %; Eosinophils # (auto) 0.05 K/uL (0.00-0.50); Eosinophils % (auto) 1.4 %; Hematocrit (blood only) 24.3 % (42.0-52.0); Immature Granulocytes # (auto) 0.01 K/uL (0.01-0.20); Immature Granulocytes % (auto) 0.3 %; Lymphocytes # (auto) 0.71 K/uL (1.20-3.40); Lymphocytes % (auto) 20.3 %; Mean Corpuscular Hemoglobin 28.1 pg (25.0-34.0); Mean Corpuscular Hgb Conc 32.9 g/dL (32.0-36.0); Mean Corpuscular Volume 85.3 fL (80.0-100.0); Mean Platelet Volume 12.1 fL (9.4-12.4); Monocytes # (auto) 0.59 K/uL (0.11-0.59); Monocytes % (auto) 16.9 %; Neutrophils # (auto) 2.13 K/uL (1.40-6.50); Neutrophils % (auto) 60.8 %; Platelet Count 101 K/uL (130-400); RDW Coefficient of Variation 14.6 % (11.5-14.5); RDW Standard Deviation 45.8 fL (36.4-46.3); Red Blood Count 2.85 M/uL (4.70-6.10)
[2024-10-09 08:21] LABS: Albumin Level 3.1 gm/dl (3.4-5.0); BUN Creatinine Ratio 19.9 (10-20); Bilirubin Direct 0.1 mg/dl (0-0.2); Bilirubin,Total 0.3 mg/dl (0.2-1.0); Calcium 7.5 mg/dl (8.6-10.3); Creatinine Clr Calc Pharmacy 26.4 ml/min; Phosphorus 3.4 mg/dl (2.5-4.9); Potassium 4.3 mmol/L (3.5-5.1)
[2024-10-09] MEDS ORDERED: STAT IV/IM STA (09:14)
--- NOTE | 2024-10-09 09:20 | Nephrology Progress Note ---
Date of Service October 09, 2024 Assessment & Plan Admission and Anticipated Discharge Date Admission Date: October 06, 2024 Subjective Subjective Assessment & Plan (1) Acute worsening of stage 3 chronic kidney disease: Found to have ARELIS with creat of 5.1 and na 123. getting NS. Also tested for Covid. getting Iv vanco and Iv Zosyn also His last outpt labs from 08/21/2024 ---creat 2.4 k 5.4 and dropping Na of 130. Must be noted that for last 6 months Creat has been rising, K has been rising and na has been dropping. There has been Worsened left kidney status--maybe was functional before but is now non functional with severe Hydronephrosis. urology Note reviewed from today. Nuc med result from 10/07 reviewed showing about 19 % split function in left so maybe reasonable to do the ureteric stent in left. It is better to give benefit of doubt and do the procedure than not do . urology planning to do the procedure as outpt. There is no rt Hydronephrosis. Renal function did improve overnight. Hold Lisinopril. No NSAIDS. No nephrotoxic agents. Creat did come down further overnight so good sign. Creat low 3's today and had high 1's few months back. Bicarb drip at 80 ml /hr for tonight given NAGMA (2) Acute hyponatremia: na much better at 133. However we are creating high cl and low Bicarb with n ormal AG--so essentially NAGM. D/c NS and use Bicarb drip with i50 meq Sodium bicarb ( so isotonic) at 80 ml /hr till tomorrow. (3) SARS-CoV-2 positive: (4) Status post liver transplant: At home On Prograf and MMF. After discussion with Transplant team at [facility]---prograf restarted. MMF stopped because of pancytopenia. Low dose steroid also given. Agree with this plan and will continue same. Does need daily LFT also given anaplasmsosis Currently patient is Pancytopenic but PLT count better today. hgb and WBC about same though. He also has Sub arachnoid bleed with Low PLT and Dropping so this is becoming a big issue now. PLT better today S--All labs slightly better today. making urine. No new Symptoms. Physical Exam Physical Exam: Constitutional: Awake and alert. at bedside. Mm--moist. neck Supple. No JVD. Respiratory: lungs clear to auscultation, no wheeze, rales, rhonchi. Normal insp/exp effort Cardiovascular: RRR, no murmur, no edema Abdomen: soft, + multiple surgeries, nontender, Skin: no rashes, warm and dry normal turgor Neurologic: PERRL, EOMI, accommodation nl, no face palsy, no dysarthria CN's II-XI intact bilaterally and moves all extremities Psychiatric: A+Ox3, euthymic affect Results & Data Vital Signs (Past 12 Hours) Vital Signs Temp Pulse Pulse Resp BP BP Pulse Ox 10/09/24 08:07 36.5 C 84 19 137/81 100 10/09/24 07:28 80 10/09/24 03:16 36.5 C 91 H 16 114/71 99 10/08/24 23:00 36.5 C 90 18 110/72 98 10/08/24 22:11 83 O2 Del Method 10/09/24 08:07 Room Air 10/09/24 07:28 10/09/24 03:16 Room Air 10/08/24 23:00 Room Air 10/08/24 22:11
--- NOTE | 2024-10-09 09:43 | Urology Progress Note ---
Date of Service October 09, 2024 Assessment & Plan (1) Hydronephrosis of left kidney: (2) Acute renal failure superimposed on stage 3 chronic kidney disease: Plan: 59-year-old male with a history of multiple medical comorbidities including history of a liver transplant and CKD. He was recently admitted here due to worsening labs showing a creatinine rise from 2.4 up to slightly over 5. Renal ultrasound showed left hydronephrosis but no right hydronephrosis. Patient afebrile, stable vitals Labs today reviewedcreatinine downtrending (3.51), Na 133, no leukocytosis, hemoglobin 8.0 Subjectively doing well, no flank pain Left hydronephrosis likely due to left proximal ureteral stricture causing obstruction and worsening renal function Nuclear medicine scan shows split renal function of 19.3% on the left and 80.7 on the right Placement of left ureteral stent previously reviewed and discussed with patient in detail with Dr. Still Given continued improvement with renal function, we discussed pursuing stent placement as an outpatient after he recovers from COVID and anaplasmosis No acute intervention planned today Patient can have diet from perspective Continue supportive care and medical management per hospital service We will arrange outpatient follow-up with our service will sign off, recall as needed Admission and Anticipated Discharge Date Admission Date: October 06, 2024 Subjective Patient seen and examined at bedside this morning. He is awake and sitting up in bed. No acute issues overnight. He reports generally feeling better. Continues to feel fatigue. No fever or chills. No flank pain. Review of Systems Constitutional: as per Subjective / HPI Genitourinary: + as per Subjective / HPI Physical Exam Constitutional: well developed and well nourished; no acute distress Respiratory: normal respiratory effort; no respiratory distress and no labored breathing Gastrointestinal (Abdomen): Inspection/Auscultation: abdomen normal to inspection Musculoskeletal: Head/Neck/Chest: normocephalic Neurologic: moves all extremities and awake Psychiatric: Orientation: alert and oriented x 3 Results & Data Vital Signs (Past 12 Hours) Vital Signs Temp Pulse Pulse Resp BP BP Pulse Ox 10/09/24 08:07 36.5 C 84 19 137/81 100 10/09/24 07:28 80 10/09/24 03:16 36.5 C 91 H 16 114/71 99 10/08/24 23:00 36.5 C 90 18 110/72 98 10/08/24 22:11 83 O2 Del Method 10/09/24 08:07 Room Air 10/09/24 07:28 10/09/24 03:16 Room Air 10/08/24 23:00 Room Air 10/08/24 22:11 PG Care Time/CCT Total # of Minutes Spent Total Time Spent with Patient: Total time spent is greater than 50% in coordination of care (as documented) at patient's floor/unit and/or counseling patient: Coding Level of Care Code 35895 SUB INP/OBS CARE 12/19MIN Diagnoses Hydronephrosis of left kidney N13.30 Acute renal failure superimposed on stage 3 chronic kidney disease N17.9; N18.30
[2024-10-09] MEDS: SODIUM BICARBONATE 8.4% 150 MEQ in DEXTROSE 5% 1,000 ML IV SCH (10:00)
--- NOTE | 2024-10-09 12:01 | Hospitalist Progress Note ---
Date of Service October 09, 2024 Assessment & Plan (1) Severe sepsis: (2) Anaplasmosis: (3) COVID-19 virus infection: (4) Subarachnoid hemorrhage: (5) Hypomagnesemia: (6) Pancytopenia: (7) Acute renal failure superimposed on stage 3 chronic kidney disease: (8) Acute hyponatremia: (9) Hydronephrosis of left kidney: (10) Liver transplant recipient: (11) Metabolic acidosis with normal anion gap and failure of bicarbonate regeneration: Plan Patient has shown steady improvement in his renal function. Reviewed nephrology recommendations, transitioning to fluids with sodium bicarbonate. Follow BMP Communication with urology team, patient will follow-up with them outpatient and consider interventions on his hydronephrosis when he is more fully recovered from this infection Transition to oral doxycycline Communication with transplant team updated them on his tacrolimus level as well as plans for possible discharge within the next 24 hours. Reviewing his plan for resuming CellCept, Prograf dose etc. Check tacrolimus level today Continue supportive care for COVID, has not needed any medications/met criteria for COVID directed treatments Monitor labs in a.m. Admission and Anticipated Discharge Date Admission Date: October 06, 2024 Subjective Patient is feeling better. No chest pain, no shortness of breath. Anxious to get home. Has chosen to defer intervention on hydronephrosis to outpatient Physical Exam Physical Exam: Constitutional: Alert, nontoxic HEENT: Mucous membranes moist. Lungs: Clear to auscultation, decreased, no wheezes rales or rhonchi CV: S1-S2, regular Abdomen: Soft, nontender, nondistended Extremities: No significant edema Neuro: No focal deficits Psych: Cooperative, normal mood Results & Data Results & Data Vital Signs (Past 12 Hours) Vital Signs Temp Pulse Pulse Resp BP Pulse Ox O2 Del Method 10/09/24 08:07 36.5 C 84 19 137/81 100 Room Air 10/09/24 07:28 80 10/09/24 03:16 36.5 C 91 H 16 114/71 99 Room Air Laboratory Results Reviewed imaging, laboratory and diagnostic studies. Pertinent findings as below. Tacrolimus level from 10/06/2024 2.8 Creatinine 3.5 Bicarb 12 Sodium 133 Platelets 101 Hemoglobin 8.0 WBCs 3.5
[2024-10-09] MEDS: DOXYCYCLINE HYCLATE 100 MG CAP PO SCH (21:09)
[2024-10-10 04:08] VITALS: RESP 18
[2024-10-10 06:15] LABS: BUN Creatinine Ratio 18.5 (10-20); Calcium 7.3 mg/dl (8.6-10.3); Creatinine Clr Calc Pharmacy 34.4 ml/min; Potassium 3.8 mmol/L (3.5-5.1)
[2024-10-10 06:21] LABS: Basophils # (auto) 0.01 K/uL (0.00-0.20); Basophils % (auto) 0.3 %; Eosinophils # (auto) 0.13 K/uL (0.00-0.50); Eosinophils % (auto) 3.3 %; Hematocrit (blood only) 22.4 % (42.0-52.0); Hemoglobin 7.5 g/dl (14.0-18.0); Immature Granulocytes # (auto) 0.04 K/uL (0.01-0.20); Lymphocytes # (auto) 0.83 K/uL (1.20-3.40); Lymphocytes % (auto) 21.1 %; Mean Corpuscular Hemoglobin 28.1 pg (25.0-34.0); Mean Corpuscular Hgb Conc 33.5 g/dL (32.0-36.0); Mean Corpuscular Volume 83.9 fL (80.0-100.0); Mean Platelet Volume 11.7 fL (9.4-12.4); Monocytes # (auto) 0.76 K/uL (0.11-0.59); Monocytes % (auto) 19.3 %; Neutrophils # (auto) 2.17 K/uL (1.40-6.50); Platelet Count 128 K/uL (130-400); RDW Coefficient of Variation 14.6 % (11.5-14.5); RDW Standard Deviation 45.2 fL (36.4-46.3); Red Blood Count 2.67 M/uL (4.70-6.10); White Blood Count 3.94 K/ul (4.8-10.8)
[2024-10-10 06:42] LABS: Tear Drop Cells 1+
[2024-10-10 08:56] VITALS: BP 138/83; PULSE 90; TEMP 97.6; O2SAT 100
--- NOTE | 2024-10-10 10:17 | Discharge Summary ---
Discharge Summary Date of Service October 10, 2024 Principal Dx & Hospital Course #1 = Principal Diagnosis (1) Severe sepsis: (2) Anaplasmosis: (3) COVID-19 virus infection: (4) Subarachnoid hemorrhage: (5) Hypomagnesemia: (6) Pancytopenia: (7) Acute renal failure superimposed on stage 3 chronic kidney disease: (8) Acute hyponatremia: (9) Hydronephrosis of left kidney: (10) Liver transplant recipient: (11) Metabolic acidosis with normal anion gap and failure of bicarbonate regeneration: Plan Patient presented to the emergency room with fever, chills, generalized myalgias that been progressing over the past couple days. In the emergency room noted to have acute on chronic renal failure, significant pancytopenia and tested positive for COVID as well as anaplasmosis. Patient was admitted to the hospital. Started on IV doxycycline for anaplasmosis. Patient did not meet any criteria for goal-directed treatment for his COVID and was continue with supportive care. Nephrology consultation was obtained for his acute on chronic renal failure. He was given some IV hydration and nephrotoxins were held. Urology consultation was also obtained. Patient had known hydronephrosis on the left from obstructing ureteral calculi. Initial plans were to not pursue any intervention however the setting of his acute renal dysfunction is concerned that he may need to have intervention on that hydronephrosis to get his kidneys working more adequately. From the time of admission patient was complaining of a headache. Head CT was performed it did show a subarachnoid hemorrhage that was small in nature. This is most likely due to increased intracranial pressure from his vomiting that he had prior to admission and his severe thrombocytopenia. Neurosurgical phone conversation/consultation was obtained with [facility]. He did not need any surgical intervention. They did recommend platelet transfusion to get his platelets above 75. Patient was given a unit of platelets. His platelets significantly improved. Head CT on repeat exam was stable. Patient's platelets continue to improve as his anaplasmosis infection was treated. His renal function improved. He was placed on a few different fluids including sodium bicarbonate fluids for his renal function and was trending back towards his baseline. Patient is also a liver transplant. Conversations were held with his liver health education coordinator and physician for recommendations on his CellCept and tacrolimus. Tacrolimus levels were obtained. These were reviewed with his transplant team. It was recommended that he continue on the lower dose of Prograf and holding his CellCept until they can follow-up with him. He was transition to oral doxycycline which he tolerated well. On the day of discharge his platelets had improved again. Renal function had improved. He was feeling much improved as far as his myalgias and arthralgias. He is afebrile. Tolerating the oral doxycycline. He has reportedly standing orders to get blood tests as an outpatient. Understands he needs to follow-up with urology, nephrology, his liver team, and his PCP. He will be discharged to continue recovering at home. Notes For Next Care Provider BMP and CBC in 3 to 5 days Follow-up with [facility] nephrology, Dr. Alejo, within 7 to 14 days Follow-up with [facility] liver transplant team in 5 to 7 days Follow-up with urology outpatient after he is recovered from this acute infection Medication Changes From Visit Prograf dosing cut in half Doxycycline for anaplasmosis Prednisone for immunosuppression CellCept on hold until told to resume by his liver team Admission HPI Per Admitting Provider This is a 59-year-old male who has significant past medical history of primary sclerosing cholangitis status post liver transplant in 1997, retransplant in 2012 secondary to chronic failure as well as Prolia injection and repeat transplant 2 weeks after that secondary to organ donor found to have squamous cell carcinoma of lung, chronic ulcerative colitis, HTN, Sharif's, CKD stage III, anemia of chronic disease and hypothyroidism who presents to ED secondary to flulike symptoms x 4 days. is at bedside who also helps elicit history. Patient's outpatient medical records were reviewed. He states his symptoms started on Saturday when he began to feel generally unwell., "I felt like I had the flu." He tried to go to the [employer] on Saturday and was tailgating for 2 hours when he returned home and wrapped himself up in blankets. He felt very feverish and chilled. He did not take his temperature but he is positive he had a fever. He further complained of headache, poor appetite, lack of energy and nausea. He did have 2 episodes of vomiting last evening after he attempted to eat birthday cake for his son-in-law. He has chronic loose stool at baseline and denies any worsening of this. He is producing urine. He denies any respiratory symptoms including sinus congestion, cough, postnasal drip, chest pain, shortness of breath. He further denies any urinary symptoms including dysuria, increased urgency or frequency with urination. He did not take any of his medications this morning. He last took his medications last evening. Patient is established with [facility] nephrology in regards to his CKD stage III. He reports that he had a visit less than 1 month ago. He had imaging of his abdomen which revealed a large 1 cm kidney stone obstructing his left kidney. He reports at this point in time they wish to not proceed surgically with this due to a poorly functioning left kidney at baseline. He also reports that he follows with Dr. Arizmendi of [facility] urology. In ED patient remained hemodynamically stable. He did have an episode of hypotension which resolved with an IV fluid bolus. His lab work revealed a chronic anemia with a stable hemoglobin of 9.3. He does have a thrombocytopenia with a platelet level of 75. He has an acute hyponatremia with a sodium of 123 and ARELIS with a BUN of 94 and creatinine of 5.14. His respiratory bio fire tested positive for SARS-CoV-2. In ED he received 2 L of IV fluid as well as IV vancomycin and Zosyn due to patient's immunosuppressed status. Admission Exam Per Admitting Provider See H&P Discharge Exam Constitutional: Alert, nontoxic HEENT: Mucous membranes moist. Lungs: Clear to auscultation, decreased, no wheezes rales or rhonchi CV: S1-S2, regular Abdomen: Soft, nontender, nondistended Extremities: Trace pretibial edema Neuro: No focal deficits Psych: Cooperative, normal mood Updated Medication List Medication Instructions Recorded Confirmed Type aspirin 81 mg tablet,delayed 81 mg PO DAILY 06/03/20 10/06/24 History release ferrous sulfate 325 mg (65 mg 325 mg PO DAILY 06/03/20 10/06/24 History iron) tablet,delayed release metoprolol tartrate 25 mg tablet 25 mg PO BID 06/03/20 10/06/24 History mycophenolate mofetil 500 mg tablet 1,000 mg PO QAM 06/03/20 10/06/24 History mycophenolate mofetil 500 mg 500 mg PO HS 06/03/20 10/06/24 History tablet (CellCept) omeprazole 20 mg capsule,delayed 20 mg PO DAILY 06/03/20 10/06/24 History release tacrolimus 1 mg capsule, 1 mg PO Q12H 06/03/20 10/06/24 History immediate-release levothyroxine 150 mcg tablet 175 mcg PO QAM 07/23/22 10/06/24 History lisinopril 5 mg tablet 5 mg PO DAILY 09/25/23 10/06/24 History doxycycline hyclate 100 mg capsule 100 mg PO BID 6 days #12 caps 10/10/24 Rx prednisone 5 mg tablet 5 mg PO DAILY #30 tabs 10/10/24 Rx Hospital Stay Data Consultations 10/06/24 12:48 ED Decision to Admit Stat 10/06/24 13:02 Consult Nephrology Routine 10/07/24 07:54 Consult Urology Routine Diagnostic Imagining Performed 10/06/24 14:54 US Renal Bladder [US renal/blad retro comp] Stat 10/07/24 06:20 CT head/brain wo con Stat 10/07/24 08:27 CT abd pelvis wo con Urgent 10/08/24 07:00 CT head/brain wo con DAILY Reviewed imaging, laboratory and diagnostic studies. Pertinent findings as below. Head CT showed small subarachnoid hemorrhage, stable on repeat testing, I refer you to the full report for details Renal nuclear scan shows renal function 80% on the right, 20% on the left Tacrolimus level initially 2.8 repeat 1.8, third is pending Sodium 133 Potassium 3.8 Chloride 109 Bicarb 17, improved BUN 51 creatinine 2.76, improved Platelets 128, improved Hemoglobin 7.5, suspect slightly decreased due to dilutional effect of IV fluids WBCs 3.94, improved Pending Results Patient Have Any Pending Studies at Discharge: Yes Discharge Instructions Given to Patient (Per Discharging Provider) Get CBC and renal profile and tacrolimus level done on Saturday Follow-up with your necktie maker in 7 to 10 days Follow-up with your liver team next week Follow-up with urology as coordinated through their office Total Time Total Time Spent Total Time Spent (In Minutes): 40
[2024-10-10 15:07] LABS: Babesia microti DNA Not Detected (Not Detected)
== END 2024-10-10 10:58 | disposition home or self-care (01) | DRG 871 ==
LOC: ED 10:37 → EDINP 13:43 → SUATTDRO 13:43 → 4W 16:20